=== PATIENT | male | born 1965 | race Caucasian/White ===

== ENCOUNTER → 2022-09-11 | Outpatient (CLI) | payer BC ==
--- NOTE | 2022-09-12 16:10 | MR ---
EXAMINATION TYPE: MR cspine/lspine wo con DATE OF EXAM: 09/11/2022 COMPARISON: None HISTORY: Cervicalgia, vertebrogenic low back pain CONTRAST: Performed utilizing 0 mL intravenous Gadavist gadolinium contrast. TECHNIQUE: Multiplanar multiecho imaging on a 3.0 Noemí magnet is performed through the cervical spin e. FINDINGS: Susceptibility artifact from posterior cervical surgery is evident C2-C6. This limits evalu ation of the spinal cord through these levels. The craniovertebral junction is normal. Vertebral body alignment is normal. No obvious spinal canal stenosis is evident. There are levels are limited are nondiagnostic due to th e susceptibility artifact. Neural foramen where visualized appear patent. IMPRESSIONS: 1. Limited cervical spine due to susceptibility artifact. No obvious stenosis. EXAMINATION TYPE: MR cspine/lspine wo con DATE OF EXAM: 09/11/2022 COMPARISON: None HISTORY: Cervicalgia, vertebrogenic low back pain CONTRAST: 0 mL intravenous Gadavist. TECHNIQUE: Multiplanar, multisequence images of the lumbar spine were acquired. FINDINGS: Cord terminates at the L1-2 level. L5-S1: There is narrowing of the disc height. Residual disc bulge is present which may have some mini mal anterior thecal sac contact. No AP spinal canal stenosis is present. Bilateral foraminal stenosis is present. Correlate with S1 radicular symptoms. L4-L5: Facet hypertrophy and ligamentum flavum laxity is present with posterior lateral thecal sac co mpression. Neural foramen and mild narrowing. No AP spinal canal stenosis is present. L3-L4: No significant disc bulge or disc herniation. No spinal canal stenosis. No foraminal stenosi s. Some facet hypertrophy is present. L2-L3: No significant disc bulge or disc herniation. Neural foramen are patent. Facet hypertrophy is present with minimal posterior lateral thecal sac compression. No AP spinal canal stenosis is present L1-L2: Broad-based disc bulge has mild anterior thecal sac contact. No AP spinal canal stenosis is. S ome mild facet hypertrophy is present. No posterior lateral thecal sac compression is evident. Neural foramen are patent. T12-L1: No significant disc bulge or disc herniation. No spinal canal stenosis. No foraminal stenos is. IMPRESSION: 1. Degenerative disc changes disc desiccation and loss of disc height L5-S1. Residual disc bulge is m inimal anterior thecal sac contact. 2. Facet hypertrophy with posterior lateral thecal sac compression L5 S1-1 minimal degree L2-3. 3. Moderate to severe bilateral foraminal stenosis L5-S1. Correlate with S1 radicular symptoms.
== END | disposition home or self-care (01) ==
LOC: RADMRIMAIN 07:39
PROVIDERS: ATTEND Family Medicine
DX: M48.061 Spinal stenosis, lumbar region without neurogenic claudication (principal); M51.17 Intervertebral disc disorders with radiculopathy, lumbosacral region; M47.27 Other spondylosis with radiculopathy, lumbosacral region; M54.2 Cervicalgia
CPT/HCPCS: 72141; 72148

== ENCOUNTER → 2023-03-10 | Outpatient (CLI) | payer BC ==
--- NOTE | 2023-03-10 14:00 | XR ---
EXAMINATION TYPE: XR lumbar spine 2 or 3V DATE OF EXAM: 03/10/2023 Comparison: None Clinical History: 57-year-old male [id number] PAIN IN LEG, UNSPECIFIED Findings: Postsurgical change of L4-S1 posterior and interbody fusion with corresponding laminectomies. Lateral osseous fusion bone graft material is noted. Vertebral body heights are preserved. Trace grade 1 ret rolisthesis above the fusion at L3-L4. Facet arthropathy above the fusion. Moderate degenerative disc disease L1-L2. Vertebral body heights are preserved. Impression: 1. Status post L4-S1 posterior and interbody fusion with corresponding laminectomies. An completely c onsolidated lateral osseous fusion bone graft material. 2. Moderate degenerative disc disease L1-L2 and degenerative trace grade 1 retrolisthesis above the f usion at L3-L4.
== END | disposition home or self-care (01) ==
LOC: RADXRMAIN 10:21
PROVIDERS: ATTEND Neurological Surgery
DX: M51.36 Other intervertebral disc degeneration, lumbar region (principal); M43.16 Spondylolisthesis, lumbar region; Z98.890 Other specified postprocedural states
CPT/HCPCS: 72100

== ENCOUNTER → 2024-09-06 | Outpatient (CLI) | payer BC ==
--- NOTE | 2024-09-07 09:28 | MR ---
EXAMINATION TYPE: MR thoracic spine wo con DATE OF EXAM: 09/06/2024 12:41 PM COMPARISON: NONE HISTORY: Mid back pain, hx cervical and lumbar surgery. MRI thoracic is for upcoming surgery. Multiplanar MultiSpin echo imaging of the thoracic spine was performed. Disc spaces: Moderate to severe degenerative disc space narrowing and disc desiccation greatest at T7 -T12. There is multilevel disc bulging noted particularly at T2-2, T3-4 and to a greater extent at T7 -T8, T8-T9, T9-T10, T10-T11 and T11-T12. Spinal canal: There is evidence for mild to moderate central stenosis extending from T7 through T12 g reatest in considered severe at T11-T12. No intrinsic or extrinsic lesion. Thoracic spinal cord: Thoracic spinal cord is of normal caliber. Compressive myelopathy suggested at T11-T12. Paraspinal soft tissues: No evidence for paraspinal mass. No destructive lesions seen. Vertebral segments: No evidence for fracture or bony lesion. IMPRESSION: 1. Multilevel degenerative disc disease with multilevel disc bulging. Mild central stenosis extending from T7 through T11 with severe stenosis at T11-T12 where there may be compressive myelopathy. [facility], , 09/07/2024 9:06 AM
== END | disposition home or self-care (01) ==
LOC: RADMRIMAIN 11:22
PROVIDERS: ATTEND Orthopaedic Surgery
CPT/HCPCS: 72146

== ENCOUNTER → 2024-09-07 | Outpatient (CLI) | payer BC ==
--- NOTE | 2024-09-07 09:27 | XR ---
EXAMINATION TYPE: XR chest 2V DATE OF EXAM: 09/07/2024 COMPARISON: NONE HISTORY: Shortness of breath TECHNIQUE: Frontal and lateral views of the chest are obtained. FINDINGS: Scattered senescent parenchymal changes noted. Hyperinflation compatible with COPD. No evidence for infiltrate. No evidence for atelectasis. Heart size is stable. Mediastinal structures are stable and grossly unremarkable. No evidence for hilar prominence. Degenerative changes dorsal spine. IMPRESSION: 1. No evidence for acute pulmonary disease. [facility], , 09/07/2024 8:12 AM
[2024-09-07 15:09] LABS: HCT 39.8 % (39.6-50.0); HGB 13.7 g/dL (13.0-17.0); MCHC 34.4 g/dL (32.0-37.0); Mean Platelet Volume 9.4 FL (9.5-12.2); NRBC Per 100 WBC 0 X 10*3/uL (0.00-0.01); Platelet Count 498 X 10*3/uL (140-440); RBC 4.28 X 10*6/uL (4.40-5.60); RDW 12.3 % (11.5-14.5); WBC 13.47 X 10*3/uL (4.50-10.00)
[2024-09-07 15:21] LABS: ALT 23 U/L (10-49); AST 16 U/L (14-35); Albumin 4.3 g/dL (3.8-4.9); Albumin/Globulin Ratio 1.54 Ratio (1.60-3.17); Alkaline Phosphatase 89 U/L (41-126); BUN/Creat Ratio 19.78 Ratio (12.00-20.00); Blood Urea Nitrogen 17.8 mg/dL (9.0-27.0); Calcium 9.7 mg/dL (8.7-10.3); Carbon Dioxide 21.6 mmol/L (21.6-31.8); Chloride 96 mmol/L (96-109); Globulin 2.8 g/dL (1.6-3.3); Glucose 124 mg/dL (70-110); Sodium 133 mmol/L (135-145); Total Bilirubin 0.3 mg/dL (0.3-1.2); Total Protein 7.1 g/dL (6.2-8.2)
[2024-09-07 17:09] LABS: INR <0.93 sec (0.93-1.11)
== END | disposition home or self-care (01) ==
LOC: LABPAT 07:25
PROVIDERS: ATTEND Orthopaedic Surgery
CPT/HCPCS: 71046; 80053; 85027; 85610; 86850; 86900; 86901; 87070; 93005

== ENCOUNTER 2024-09-10 10:26 | Observation (INO) | payer BC ==
[~2024-09-10 10:26] MED LIST: TRANEXAMIC 1,000 MG/100ML-NACL 1,000 MG in SALINE 1 100ML.BAG IVPB PRN
[2024-09-10] MEDS: IV FLUID CONTINUATION 1,000 ML IV ONE ×3 (10:50→11:18)
[2024-09-10 11:16] LABS: Basophils % (A) 0 %; Eosinophils # (A) 0.1 k/uL (0-0.7); Eosinophils % (A) 1 %; HCT 38.3 % (39.0-53.0); Lymphocytes # (A) 2.7 k/uL (1.0-4.8); Lymphocytes % (A) 20 %; MCH 31.7 pg (25.0-35.0); MCHC 33.8 g/dL (31.0-37.0); MCV 93.8 fL (80.0-100.0); Mean Platelet Volume 7.5; Monocytes % (A) 7 %; Neutrophils # (A) 9.7 k/uL (1.3-7.7); Neutrophils % (A) 71 %; Platelet Count 451 k/uL (150-450); RBC 4.08 m/uL (4.30-5.90); RDW 12.7 % (11.5-15.5); WBC 13.6 k/uL (3.8-10.6)
[2024-09-10 11:31] LABS: ALT 24 U/L (4-49); AST 21 U/L (17-59); African American GFR (CKD) >90 (>60 ml/min/1.73 sqM); Albumin 4.1 g/dL (3.5-5.0); Alkaline Phosphatase 80 U/L (38-126); Anion Gap 8 mmol/L; Blood Urea Nitrogen 18 mg/dL (9-20); Calcium 9.2 mg/dL (8.4-10.2); Carbon Dioxide 26 mmol/L (22-30); Chloride 102 mmol/L (98-107); Glucose 89 mg/dL (74-99); Non-African American GFR(CKD) >90 (>60 ml/min/1.73 sqM); Potassium 3.9 mmol/L (3.5-5.1); Sodium 136 mmol/L (137-145); Total Bilirubin 0.6 mg/dL (0.2-1.3); Total Protein 6.9 g/dL (6.3-8.2)
[2024-09-10] MEDS: ACETAMINOPHEN TAB 500 MG TAB PO PRN (11:32)
[2024-09-10] MEDS: ONDANSETRON 4 MG/2 ML VIAL IVP PRN (11:32)
[2024-09-10] MEDS: GABAPENTIN 300 MG CAP PO PRN (11:32)
[2024-09-10] MEDS: LACTATED RINGERS 1,000 ML BAG IV STA (11:33)
[2024-09-10] MEDS: DEXAMETHASONE SOD PHOSPHATE 4 MG/ML 1 ML VIAL IVP STA (11:33)
--- NOTE | 2024-09-10 12:33 | P.HPOR ---
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 Fatima presents to the office today, 09/05/24, for evaluation on referral from his PCP Dr. Olsen. Pt over the past 8 weeks has had progressive weaknes in his RLE to the point now where he is using a walker to get around and cannot lift up his RLE any longer. He states gait instability and is falling due to his RLE giving out. He also states that he is starting to get numbness in his ubilical area as well as down the fronts of his legs into his feet. He states this has just started over the past 3-4 weeks but is progressively getting worse. He followed up with his PCP after and MRI he received and was sent immediately to me for cosultation due to severe findings at T11-12 with severe stenosis and his progressive neurological sx. He states mid back pain as well. He has a hx of L4-S1 fusion in the past. He denies any issues related to this. He states no sx like this ever before and he is worried as he is having trouble with his urination. H8 Patient denies any f/c/sob/cp, perineal numbness or tingling, bowel, or bladder incontinence/retention. Patient is ambulatory with a walker which is new for him. P1 The patients past social, medical, family, surgical history, as well as review of systems, have been reviewed. Please refer to the History and Physical form that has been scanned into our electronic medical record system. R0 16 points review of systems completed and as stated in HPI, all other systems reviewed are negative. PAST TREATMENTS: PAST IMAGING: YES -XR, MRI TRAUMA RELATED: NO - WORK RELATED: NO - PT IN LAST 6 MONTHS: YES -Made worse PHYSICIAN DIRECTED HOME EXERCISE PROGRAM: YES -YES, made worse ACTIVITY MODIFICAITON: YES -Cannot work, Has been off work due to his gait instability, weakness and inability to ambulate normally due to weakness in legs with progressive changes. MEDICATIONS: YES -Prednisone, medrol, flexeril ALTERNATIVE INTERVENTIONS (CHIROPRACTIC, ACCUPUNCTURE, MASSAGE, RICE): YES -Massage, no help BRACING: NO - INJECTIONS (MIMI, TF, RFA): NO - MEDICAL HISTORY: Past Medical History: REVIEWED STATED IN CHART Past Surgical History: REVIEWED STATED IN CHART Social History: REVIEWED STATED IN CHART SMOKING: Never smoker ETOH: None SUBSTANCES: None Family History: REVIEWED STATED IN CHART P1 Current Medications: Rx: CeleBREX Ref: 0 Rx: gabapentin Ref: 0 Rx: [place] Ref: 0 Rx: Robaxin Ref: 0 P1 PHYSICAL EXAM: General: AOX3, NAD, Well hydrate, well nourished HEENT: No lumps or masses Extremities: No color changes, no pooling INTEGUMENT: Appearance: Normal color and turgor Surgical Incisions: Well healed Low back incision Hairy Patches: ABSENT Dorsal Skin Dimples: Normal [employer] spots: ABSENT PALPATION: TTP Midline: NO Paracervical: NO Parathoracic: YES Paralumbar: Mild SIJ TESTING: NT POSTURAL BALANCE: Coronal: BALANCED Sagittal: BALANCED Shoulder height: LEVEL Pelvic Girdle: LEVEL ROM AND APPEARANCE: Neck: UNRESTRICTED Lumbar: RESTRICTED Shoulders: Symmetrical Hips: Symmetrical Knees: Symmetrical Hands: Symmetrical Feet: Asymmetrical, Right foot and leg showing atrophy VASCULAR STATUS: PALPABLE PULSES B/L UE AND LE 2/4 RAD/ULNAR/DP/PT Edema: NONE NEUROLOGICAL EXAMINATION: Mental Status: Awake, alert, fully oriented with normal attention, concentration, and memory. Fluent appropriate speech. CRANIAL NERVES: I: Olfactory not assessed. II: Visual acuity normal, no visual field deficit noted with confrontation. III, IV: Normal pupillary reflexes & intact extraocular movements without nystagmus. V, : Intact symmetrical facial sensation. VII: Intact symmetrical facial motor movement: Hearing intact. IX, X: Intact gag, swallow, & normal voice. XI: Sternocleidomastoid, trapezius function intact. XII: Tongue midline with normal movements. TENSIONING: * L'HERMITTE'S SIG:NEG SPURLUNG'S SIGN:NEG CUBITAL TUNNEL COMPRESSION:NEG TINELS AT WRIST:NEG STRAIGH LEG RAISE:POS CONTRALATERAL STRAIGHT LEG RAISE: NEG MOTOR EXAM (0-5/5, NT) Muscle appearance: Asymmetrical, RLE showing atrophy of the calf and thigh muscles as well as intoeing of the right foot due to weakness. UPPER EXTREMITY RIGHT LEFT Shoulder Abduction 5 5 Biceps 5 5 Triceps 5 5 Wrist Extension 5 5 Hand Intrinsics 5 5 Psychology Technician 5 5 LOWER EXTREMITY RIGHT LEFT Hip Flexion 3 4 Knee Extension 4- 4 Knee Flexion 4- 5 Dorsiflexion 4 5 Plantarflexion 4- 4+ EHL 3 4+ FHL 3 4+ REFLEXES (0-4/2, NT): RIGHT LEFT Bicep 2 2 Brachioradialis 2 2 Triceps 2 2 Patellar 3 3 Achilles 3 3 PATHOLOGICAL REFLEXES: RIGHT LEFT CONNORS'S ABSENT ABSENT CLONUS PRESENT 7 BEATS PRESENT 5 BEATS BABINSKI ABSENT ABSENT RECTAL TONE: INTACT/NT SENSATION (0-4, NT): Sensation intact to LT and Pain * C5-T1 distribution BUE * L2-S2 distribution BLE *Exceptions below* DERMATOMAL DEFICIT/RADICULAR PATTERN: T11-12 UBILICAL; L1-2 BL LE, S1 RIGHT GAIT AND FUNCTIONAL EVALUATION: AMBULATORY AID WALKER ROMBERG'S TEST INTACT HAND AND FINGER DEXTERITY INTACT YES DYSDIADOCHOKINESIA EXAM NEG B/L YES TOE/HEEL WALK INTACT WITH GOOD BALANCE NO SQUAT AND RISE W/O ASSISTANCE TO 60 DEG KNEE FLEXION NO SINGLE LEG STANCE NOT INTACT TR[place] NT IMAGING: XRAY Date: 09/05/24 Location: [facility] Region: THoracic and lumbar/pelvis Views: AP/LAT/FLEX/EXT/OB/PELVIS IMAGES ARE REVIEWED WITH THE PATIENT IN OFFICE AND DEMONSTRATE THE FOLLOWING: FINDINGS: Post surgical changes of L4-S1 with fusion construct in place. Mild ASD noted L3-4. Severe spondylotic changes of L1-2 noted with disc collapse, space collapse noted at T11-12 as well with local kyphosis. No fractures noted. Alignment is stable with reasonable lordosis post op. There is increased thoracic kyphosis at the T/L junction howevere due to the collapse. CT Pending MRI Date: 08/30/24 Location: [facility] Region: LUMBAR Contrast: N IMAGES ARE REVIEWED WITH THE PATIENT IN OFFICE AND DEMONSTRATE THE FOLLOWING: FINDINGS: T11-12 shows a large HNP with anterior and posterior stenosis at this level that is severe with myelomalacial changes and cord signal changes at this level that are spreading down past the T12 level. Ligamental hypertrophy causes posterior stenosis and a pincer type lesion at this level adding to the stenotic features. b/l foraminal stenosis is severe as well. No fractures noted. There is disc collapse that is severe at this level due to the herniation and spondylotic changes. Facet arthrosis is noted that is moderate to severe as well. At L1-2 there is also a large HNP that is causing moderate to severe stenosis at this level. THere is b/l foraminal stenosis as well. There is severe spondylotic collapse of this level as well adding to the stenotic features centrally. No fractures. The remainder of the lumbar spine appears to be stable with post surgical changes, reasonable decompression at the lower lumbar levels L4-S1 without complicating process seen. IMPRESSION: It was my pleasure to have seen and examined Alex. I reviewed the patient's clinical syndrome, physical findings, and imaging studies during the appointment today. It is my impression that the patient has a diagnosis of. 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 GAIT INSTABILITY 5. HYPERREFLEXIA 6. MID BACK PAIN PLAN: DISCUSSION: -I HAVE DISCUSSED WITH THE PATIENT HIS CLINICAL SIGNS AND SX WELL TREATMENT OPTIONS. AT THIS POINT THE PATIENT NEEDS URGENT SURGERY TO ADDRESS HIS ISSUES HE HAS BECOME PROGRESSIVELY WORSE OVER THE PAST 8 WEEKS AND IS NOW SHOWING SIGNS OF PERMANENT DAMAGE. IF NOT TAKEN CARE OF SOON HIS MAXIMUM RECOVERY POTENTIAL IS AT RISK AND HE MAY NOT REGAIN ALL OF HIS LE FUNCTION. HE UNDERSTANDS THIS AND IS COMFORTABLE PROCEDING OUTLINED BELOW. RISKS AND BENEFITS DISCUSSED IN RISK REVIEW. SURGICAL RECOMMENDATION -T11-1 LAMINECTOMY DECOMPRESSION WITH DISCECOMTY AND STABILIZATION; L1-2 LAMINECTOMY DECOMPRESSION Surgical Procedure Risk Review Alex Fatima is a 58 year old male presenting for evaluation of sudden onset of LE WEAKNESS, DIFFICULTY WITH GAIT, FALLING, PROGRESSIVE NEUROLOGICAL CHANGES. It was my pleasure to have seen and examined Mr. Fatima. In our visit today we have had a chance to go over subjective complaints, physical examination findings and treatments, including the natural course history without intervention and various interventional options. The imaging demonstrates T11-12 HNP LARGE WITH SEVERE STENOSIS AND MYELOMALACIA; L1-2 HNP LARGE WITH STENOSIS, SEVERE . On physical exam, Mr. Fatima demonstrates THORACIC MYELOPATHY, STEPPAGE GAIT, LE WEAKNESS, PROGRESSIVE NEUROLOGICAL CHANGES . I explained to the patient that as his condition progresses it could cause DETRIMENTAL CHANGES TO HIS LE IMPACTING HIS MAXIMUM RECOVERY POTENTIAL WITH PERMANENT WEAKNESS, DAMAGE AND POSSIBLE PROGRESSIVE CHANGES . At this time, based on the patients imaging and physical exam, I recommend surgery in the form or a: T11-1 LAMINECTOMY DECOMPRESSION WITH DISCECOMTY AND STABILIZATION; L1-2 LAMINECTOMY DECOMPRESSION . I discussed the risk and benefits of this procedure at length with Mr. Fatima. The patient agreed to consider pursuing the procedure mentioned above. Plan: 1. URGENT T11-1 LAMINECTOMY DECOMPRESSION WITH DISCECOMTY AND STABILIZATION; L1-2 LAMINECTOMY DECOMPRESSION 2. LABS ON ARRIVAL TO OR 3. CXR, EKG ON ARRIVAL 4. THORACIC MRI STAT 5. THORACOLUMBAR CT FOR SURGICAL PLANNING Risks: All surgical procedures come with inherent risks, including those related to positioning, anesthesia, intraoperative findings, and postoperative complications. It is important to understand that surgery does not come with any guarantee of a successful outcome as complications and adverse events are always possible. The patient was given a handout in office today discussing the surgical procedure and risks associated with the intervention, both of which were discussed with the patient. These risks include but are not limited to the following: ? Experiencing same, different or even worse symptoms in back, neck, arms, or legs compared to before surgery. ? Requiring further surgery or other forms of treatment presently or at some time in the future at same or other levels of the intended spine surgery. ? On an extreme but fortunately relatively rare basis severe complication such as blindness, stroke, heart attack, temporary and/or permanent nerve injury, paralysis, coma, or may occur, sometimes without known explanation. ? Surgical complications may include but are not limited to risk of infection, fluid accumulation in the surgical dissection site, including a seroma or hematoma, that requires additional surgery, wound drainage, bleeding, new numbness or weakness, vision changes/loss, spinal fluid leakage, non-healing and/or infected incision, headaches, difficulty or inability to swallow, hoarseness, hemopneumothorax, pneumothorax, impotence, retrograde ejaculation, vaginal dryness; injury to nerves, spinal cord, blood vessels, lymphatics or other vital organs (i.e., bowel injury, injury to the great vessels); heterotopic bone formation; complications related to the hardware such as screws, rods, cages including misplaced hardware, device failure, instrumentation at the wrong spine level, hardware fracture/breakage, or hardware loosening; vertebral failure of the spinal column above or below the newly placed hardware; retained surgical instrumentations or devices and the need for further surgery. ? Medical risks of the planned spine surgery include but are not limited to generalized Infections to the whole body or local areas outside of the surgical site (sepsis), heart attack, bleeding, anaphylaxis, meningitis, seizure, epile psy, hearing loss, burn pope, laceration of the head or other areas of the body, bruising, hypersensitivity of the skin, bladder over distension; allergic reaction; shoulder injury related to positioning; fat, blood and air clots to other areas of the body like heart, lungs, brain; failure of internal organs such as lungs, kidneys, liver and excessive bleeding. If blood transfusions are necessary, note that transfusions may cause intolerance reactions such as anaphylaxis or other complex reactions. Despite best efforts, the results of spine surgery might not heal in terms of bone, soft tissues such as skin, fascia, ligaments, and joints. Additionally, in order to achieve best possible results, spine surgery may be carried out beyond the initially planned levels and involve decompression, fusion including insertion of hardware at levels other than the original intended area of surgica l interest change some portions of the procedure in order to ensure the best possible outcomes. With spine surgery and spinal fusion, there are different off label uses of instrumentation (devices, implants and hardware) as well as biological substances (bone morphogenic proteins, demineralized bone matrix) as well as using extra bone from allograft sources (i.e. cadaver bone) or autograft (iliac crest bone, ribs, or the spine itself). The patient has been given information about these practices and their inherent risks and benefits. [facility] Physician Assistants are medically trained surgical providers who function in the outpatient, inpatient, and operating room setting under the direct supervision of the attending surgeon.They assist in the operating room with direct supervision of the attending surgeons. The patient has had a chance to review all the listed information, has been given print outs detailing this information, and has had all his/her questions a nswered to their satisfaction. It was my pleasure to have seen and examined Mr. Fatima. In our visit today we have had a chance to go over my understanding of our patient's current condition, the natural course history without intervention and various interventional options. Questions were invited and answered, and the patient wishes to proceed as outlined above. I have seen and examined the patient for 25 minutes and we have spent more than 50% of the time in repeat and detailed counseling about the patient's condition, its natural course history with out and as much as can be predicted with surgery and re-review of various surgical treatment options. In conclusion,Mr. Fatima and his spouse/partner requested we proceed with the above suggested surgery and are willing to accept risks and limitations of the suggested surgery as nature of the disease process and our best attempts at tr eatment for the condition. THERAPIES - -Cont. with home exercises and home PT exercises as able -Cont. with Heat/Ice as warranted -Cont. with supplementation Vit D, Vit C, Ca2+, High protein diet -OK for massage or other alternative treatment modalities as able. If it exacer alvarez your sx do not continue ACTIVITY -OFF WORK -NO LIFTING BENDING TWISTING PUSHING PULLING GREATER THAN -10 LBS -Recommend walking up to 30 min 2x daily on a flat easy surface with good support. MEDICATIONS -PREDNISONE 20 MG BID #30 -Take as directed -Cont. home medications as directed by your PCP. Check with your PCP for any medication interactions or issues if needed. IMAGING -MRI STAT THORACIC SPINE FOR FURTHER REVIEW OF THE T11-12 REGION. -CT STAT OF THE T/L SPINE FOR SURGICAL PLANNING FOLLOW UP: POST OP PLAN AT NEXT VISIT: RECKECK AND WOUND CHECK PATIENT EDUCATION: Medications Reviewed: YES In our visit today Mr. Fatima and I have had a chance to go over my understanding of the patient's current condition, the natural course history without intervention and various interventional options. Questions were invited and answered, and the patient wishes to proceed as outlined above. I will be sure to keep you updated after Mr. Fatima returns here for further follow-up. Thank you again for your referral. Please do not hesitate to contact me if you have any further questions. Signed and authenticated by: Brandon [facility] [address] [facility], [address] [address] . This message is confidential, intended only for the named recipient(s) and may contain information that is privileged or exempt from disclosure under applicable law. If you are not the intended recipient(s), you are notified that the dissemination, distribution or copying of this information is prohibited. If you received this message in error, please notify the sender then delete this message. Rx: predniSONE 20 mg tablet, 30, Ref: 0, take 1 tablet (20 mg) by oral route 2 times per day #Orders: Pelvis xray #Orders: Spine, Lumbar, MV #Orders: Thoracic, 2v xray #Orders: MRI Spine # SIGNED BY Brandon Alcantara (Sujit)09/05/2024 11:26A Past Medical History Past Medical History: Hypertension History of Any Multi-Drug Resistant Organisms: None Reported Past Surgical History: Back Surgery, Orthopedic Surgery Additional Past Surgical History / Comment(s): LEFT SHOULDER SCOPE, CERVICAL AND LUMBAR BACK SURGERY. Past Anesthesia/Blood Transfusion Reactions: No Reported Reaction Additional Past Anesthesia/Blood Transfusion Reaction / Comment(s): NEVER HAD A BLOOD TRANSFUSION Past Psychological History: No Psychological Hx Reported Smoking Status: Vaper Past Alcohol Use History: Occasional Additional Past Alcohol Use History / Comment(s): FEW TIMES A WEEK. Past Drug Use History: None Reported Medications and Allergies Home Medications Medication Instructions Recorded Confirmed Type Celecoxib 200 mg PO DAILY 09/10/24 09/10/24 History Gabapentin 300 mg PO TID 09/10/24 09/10/24 History HYDROcodone/APAP 7.5-325MG [[place] 1 tab PO QID PRN 09/10/24 09/10/24 History 7.5-325] Pantoprazole [Protonix] 40 mg PO DAILY 09/10/24 09/10/24 History lisinopriL [Zestril] 10 mg PO DAILY 09/10/24 09/10/24 History methocarbamoL 500 mg PO TID PRN 09/10/24 09/10/24 History Allergies Allergy/AdvReac Type Severity Reaction Status Date / Time No Known Allergies Allergy Verified 09/10/24 10:43 Physical Examination Osteopathic Statement: *. No significant issues noted on an osteopathic structural exam other than those noted in the History and Physical/Consult. Results - Labs Labs: Abnormal Lab Results - Last 24 Hours (Table) 09/10/24 09/10/24 Range/Units 11:04 11:04 WBC 13.6 H (3.8-10.6) k/uL RBC 4.08 L (4.30-5.90) m/uL Hct 38.3 L (39.0-53.0) % Plt Count 451 H (150-450) k/uL Neutrophils # 9.7 H (1.3-7.7) k/uL Sodium 136 L (137-145) mmol/L H & H 09/10/24 Range/Units 11:04 Hgb 13.0 (13.0-17.5) gm/dL Hct 38.3 L (39.0-53.0) % Result Diagrams: 09/10/24 11:04 09/10/24 11:04
--- NOTE | 2024-09-10 12:34 | P.PN ---
Progress Note - Text Progress Note Date: 09/10/24 History and Physical UPDATE I have seen and examined the patient and reviewed the history and physical. There appear to be no significant changes in the patient's current medical status as outlined in the current History and Physical.
[2024-09-10] MEDS ORDERED: PHENYLEPHRINE 10 MG/ML VIAL ONE (14:11)
[2024-09-10] MEDS ORDERED: WATER FOR INJECTION, STERILE 10 ML VIAL IV ONE (14:11)
[2024-09-10] MEDS ORDERED: ePHEDrine 50 MG/ML 1 ML VIAL ONE (14:11)
[2024-09-10] MEDS ORDERED: LIDOCAINE 1% INJ 10MG/ML (20 ML MDV) ONE (14:11)
[2024-09-10] MEDS ORDERED: GLYCOPYRROLATE 0.2 MG/ML 2 ML VIAL ONE (14:11)
[2024-09-10] MEDS ORDERED: LABETALOL 5 MG/ML VIAL MDV ONE (14:11)
[2024-09-10] MEDS ORDERED: PROPOFOL 10 MG/ML 20 ML VIAL IV ONE (14:11)
[2024-09-10] MEDS ORDERED: NEOSTIGMINE 1 MG/ML 10 ML VIAL ONE (14:11)
[2024-09-10] MEDS ORDERED: SUCCINYLCHOLINE CHLORIDE 200 MG/10 ML VIAL IV ONE (14:11)
[2024-09-10] MEDS ORDERED: MIDAZOLAM 2 MG/2 ML VIAL ONE (14:11)
[2024-09-10] MEDS ORDERED: ROCURONIUM 10 MG/ML (5 ML VIAL) IV ONE (14:11)
[2024-09-10] MEDS ORDERED: fentaNYL (PF) 50 MCG/ML 2 ML AMP ONE (14:11)
[2024-09-10] MEDS ORDERED: TRANEXAMIC 1,000 MG/100ML-NACL PREMIX BAG ONE (14:11)
[2024-09-10] MEDS ORDERED: KETAMINE HCL IN 0.9 % NACL 50 MG/5 ML SYRINGE ONE (14:11)
[2024-09-10] MEDS: THROMBIN (BOVINE) 5,000 UNIT VIAL TOPICAL ONE (14:48)
[2024-09-10] MEDS: ceFAZolin 3,000 MG in SODIUM CHLORIDE 0.9% IRRIGATIO 3,000 ML IRRIGATION ONE (14:48)
[2024-09-10] MEDS: LACTATED RINGERS 1,000 ML IV ONE ×2 (14:48→17:26)
[2024-09-10] MEDS: GENTAMICIN 80 MG in SODIUM CHLORIDE 0.9% IRRIGATIO 3,000 ML IRRIGATION ONE (14:48)
[2024-09-10] MEDS ORDERED: HYDROcodone/APAP 5-325MG 1 EACH TAB PO PRN (16:33)
[2024-09-10] MEDS ORDERED: HYDROcodone/APAP 10-325MG 1 EACH TAB PO PRN (16:33)
[2024-09-10] MEDS ORDERED: MAGNESIUM HYDROXIDE 2,400 MG/30 ML CUP PO PRN (16:33)
[2024-09-10] MEDS: VANCOMYCIN 1,000 MG VIAL MISCELLANE ONE (17:10)
--- NOTE | 2024-09-10 17:44 | P.PN ---
Progress Note - Text Progress Note Date: 09/10/24 Brief Post Op: Surgeon: Maricruz Pre op dx;THORACIC MYELOPATHY t11 12 DISC HERNIATION SEVERE COMPRESSIVE MYELOPATHY Post op dx: SAME Procedure: T11-T12 decompression fusion posterior lateral and interbody with T11 through L2 decompression Anesthesia: GETA EBL: 250 Fluids: 2000 UO: Mc 200 Dispo: Stable to PACU Post op Plan: Post operative noncontrasted CT scan Encourage ambulation IS 10x/hr Teds/SCDs Pain control No brace needed for ambulation Record Drain output
--- NOTE | 2024-09-10 17:46 | XR ---
EXAMINATION TYPE: XR thoracic spine 2V, FL guidance operating room DATE OF EXAM: 09/10/2024 COMPARISON: NONE HISTORY: 58-year-old male T11-T12 laminectomy TECHNIQUE: Intraoperative fluoroscopy FINDINGS: T11-T12 Laminectomy with Dr. Alcantara fl time 35 sec DAP 674.43 cGy cm2 6 images submitted. [facility], , 09/10/2024 5:43 PM
[2024-09-10] MEDS: HYDROmorphone 0.5 MG/0.5 ML SYRINGE IVP PRN ×2 (18:00→18:17)
--- NOTE | 2024-09-10 20:19 | P.OP ---
Date of Procedure: 09/10/24 Preoperative Diagnosis: 1.SEVERE PROGRESSIVE THORACIC MYELOPATHY 2.T11-12 HNP, LARGE WITH SEVERE STENOSIS 3.L1-2 HNP, LARGE WITH LE WEAKNESS 4. GAIT INSTABILITY 5. HYPERREFLEXIA 6. MID BACK PAIN Postoperative Diagnosis: 1.SEVERE PROGRESSIVE THORACIC MYELOPATHY 2.T11-12 HNP, LARGE WITH SEVERE STENOSIS 3.L1-2 HNP, LARGE WITH LE WEAKNESS 4. GAIT INSTABILITY 5. HYPERREFLEXIA 6. MID BACK PAIN Procedure(s) Performed: T11-12 POSTEROLATERAL AND INTERBODY FUSION WITH DECOMPRESSIVE LAMINECTOMY FACETECTOMY AND FORAMINOTOMY T11-L2 WITH INSTRUMENTATION T11-12 AND INTERBODY PLACEMENT T11-12 USING KDS NAVIGATION. - 20005: Posterior/posterolateral AND interbody fusion, lumbar/thoracolumbar (includes laminectomy/discectomy for decompression), single level (T11-12) - 19481: Insertion of interbody biomechanical device with integral anterior instrumentation for device anchoring (T11-12) - 37920: Posterior segmental instrumentation (T11-12) - 65004: Bilateral laminectomy, facetectomy and foraminotomy for neural decompression and cage placement. (T11-12) - 38785/59: Primary decompressive laminectomy (L1-2) - 09335/59: Each additional segment (T12-L1) - 51208: Computer assisted navigation for the placement of screws (PxRadia Navigation, Zhiem) Implants: GALEN EVEREST RODS AND SCREWS GALEN TRITANIM CAGE [id number] DBM, AUTOGRAFT, MAGNATOS EASY PACK Anesthesia: GETA Surgeon: Brandon Alcantara Neuro Intensivist Physician #1: Jessica Mccoy (was present and assisted with screw placement to dressing placement) Neuro Intensivist Physician #2: Bobby Oglesby (was present and assisted from positioning to screw placement) Estimated Blood Loss (ml): 250 IV fluids (ml): 2,000 Urine output (ml): 1,750 Pathology: none sent Condition: stable Disposition: PACU Indications for Procedure: Alex Fatima is a 58 year old male presenting for evaluation of sudden onset of LE WEAKNESS, DIFFICULTY WITH GAIT, FALLING, PROGRESSIVE NEUROLOGICAL CHANGES. It was my pleasure to have seen and examined Mr. Fatima. In our visit today we have had a chance to go over subjective complaints, physical examination findings and treatments, including the natural course history without intervention and various interventional options. The imaging demonstrates T11-12 HNP LARGE WITH SEVERE STENOSIS AND MYELOMALACIA; L1-2 HNP LARGE WITH STENOSIS, SEVERE . On physical exam, Mr. Fatima demonstrates THORACIC MYELOPATHY, STEPPAGE GAIT, LE WEAKNESS, PROGRESSIVE NEUROLOGICAL CHANGES . I explained to the patient that as his condition progresses it could cause DET RIMENTAL CHANGES TO HIS LE IMPACTING HIS MAXIMUM RECOVERY POTENTIAL WITH PERMANENT WEAKNESS, DAMAGE AND POSSIBLE PROGRESSIVE CHANGES . At this time, based on the patients imaging and physical exam, I recommend surgery in the form or a: T11-1 LAMINECTOMY DECOMPRESSION WITH DISCECOMTY AND STABILIZATION; L1-2 LAMINECTOMY DECOMPRESSION . I discussed the risk and benefits of this procedure at length with Mr. Fatima. The patient agreed to consider pursuing the procedure mentioned above. Plan: 1. URGENT T11-1 LAMINECTOMY DECOMPRESSION WITH DISCECOMTY AND STABILIZATION; L1-2 LAMINECTOMY DECOMPRESSION Description of Procedure: The patient was seen and examined in the preoperative area. All preoperative protocols were followed. Informed consent was obtained, with detailed discussion of risks and benefits. Preoperative antibiotics (Ancef 2g IV) were administered. The patient was evaluated by anesthesia and deemed fit for surgery. The surgical site was marked and verified. After induction of general endotracheal anesthesia, the patient was carefully positioned prone on a Cheo table. All pressure points were meticulously padded including wrists, elbows, axilla, chest, hips, thighs, and feet. Special attention was paid to the genitalia. SCDs were placed on bilateral lower extremities. Arms were positioned on padded arm boards in 90/90 position. Positioning was verified with anesthesia for adequate ventilation and line placement. Initial fluroscopic images were taken to localize the levels of T11- L2. The skin was marked with a marker for incision. The thoracolumbar region was prepped and draped in standard sterile fashion. A timeout was performed confirming the patient, procedure, and surgical site. A midline incision was made from T10 to L2. Subperiosteal dissection was carried out to expose the posterior elements. We then confirmed levels for operative with a penfield 4 at the pedicle of T12. Using PxRadia navigation with Tackk system, pedicle screws were placed at appropriate levels with all screws testing >20 mA on EMG stimulation. Screws were confirmed to be in good position on AP and Lateral Fluroscopy. We then proceeded to decompression. The decompression was completed with bilateral laminectomy, facetectomy, and foraminotomy from T11 to L2 using a combination of high-speed parris, kerrison rongeurs, and curettes. The bilateral nerve roots were decompressed and verified with ball-tip probe. At T11-L2, extensive epidural scarring was encountered with significant adhesions between the ligamentum flavum and dura. This required meticulous microscopic dissection to safely separate the dura from the surrounding scar tissue. Specimens were sent to pathology due to the unusual appearance and extent of scarring. At T11-12, an interbody device was placed after appropriate discectomy and endplate preparation. Posterolateral fusion was performed using high speed parris to decorticate the TP and remaining facet joints and MagnatOs, DBM and local autograft was placed in the PL gutters for fusion. Meticulous hemostasis was achieved using bipolar cautery, Floseal, and Surgiflo. The surgical field was copiously irrigated with antibiotic solution, Irricept and followed by normal saline. The dura was covered with Surgicel. Vancomycin powder (2g) was placed in the wound bed. A deep drain was placed and secured. Closure was performed in layers using #1 PDS for fascia, 0 Vicryl for deep subcutaneous, and 2-0 Vicryl for superficial subcutaneous layers. Skin was closed with vishnu. Sterile dressing was applied with telfa, 4x4 and tegaderms with a drain sponge. The patient was awakened from anesthesia and extubated without complications. Transfer to PACU was uneventful with patient in stable condition.
[2024-09-10] MEDS: ACETAMINOPHEN TAB 325 MG TAB PO SCH (20:22)
--- NOTE | 2024-09-10 21:33 | P.CONS ---
History of Present Illness - Reason for Consult Consult date: 09/10/24 - History of Present Illness History of present illness; Alex Cruz 58-year-old male with hypertension, GERD, who is presenting for elective T11-12 posteriolateral and interbody fusion with decompressive laminectomy surgery. Patient initially had 8 weeks of progressive weakness in right lower extremity with gait instability and numbness in umbilical area as well as front of his legs to his feet which was progressively worsening. Patient initially seen by Dr. Maya and followed with orthopedic surgery outpatient a nd had planned surgery today. Patient is now postop with no known surgical complications. Patient is laying on side in bed resting, reporting back pain at surgical site. Patient reports absence of fever, chills, weight loss, chest pain, palpitations, diaphoresis, dyspnea, cough, nausea, vomiting, constipation, diarrhea, abdominal pain, weakness, myalgia, dizziness, headache, and dysuria. Internal medicine is consulted for medical management. EKG done in the ER independently interpreted showed heart rate of 66, no ST segment elevation or depression seen, no T-wave inversions seen. X-ray thoracic spine findings of T11-T12 laminectomy. REVIEW OF SYSTEMS: All systems reviewed, pertinent positives and negatives noted in HPI. All other symptoms are negative. PHYSICAL EXAMINATION: Vitals reviewed GENERAL: No acute distress. Well developed, well nourished. Surgical dressing lumbar spine. SCDs. HEENT: Pupils are round and equally reacting to light. EOMI. No scleral icterus. Normocephalic, atraumatic. No pharyngeal erythema. No thyromegaly. CARDIOVASCULAR: S1 and S2 present. No murmurs, rubs, or gallops. PULMONARY: Chest is clear to auscultation, no wheezing, rhonchi, or crackles. ABDOMEN: Soft, nontender, nondistended, normoactive bowel sounds. No palpable organomegaly. MUSCULOSKELETAL: No apparent joint swelling and deformities. EXTREMITIES: No apparent cyanosis, clubbing, or pedal edema. NEUROLOGICAL: The patient is alert and oriented x3, Gross neurological examination did not reveal any focal deficits. Moves upper extremities 5/5 stre ngth, limited LE exam due to pain, moves toes normally. SKIN: No apparent rashes. Assessment and plan Alex Cruz 58-year-old male with hypertension, GERD, who is presenting for elective T11-12 posteriolateral and interbody fusion with decompressive laminectomy surgery. #Essential hypertension - Resume home Lisinopril 10 mg #GERD - Resume home pantoprazole 40mg # T11-12 posterior lateral and anterior body fusion with decompressive laminectomy. -Pain management and DVT prophylaxis per primary surgical team check CBC and BMP in am overall stable from medical standpoint F: P.o. E: Replete as needed N: Heart healthy DVT ppx: per primary surgical team Code status: Full code Dictation was produced using [employer] dictation software. Please excuse any grammatical, word or spelling errors. Past Medical History Past Medical History: Hypertension History of Any Multi-Drug Resistant Organisms: None Reported Past Surgical History: Back Surgery, Orthopedic Surgery Additional Past Surgical History / Comment(s): LEFT SHOULDER SCOPE, CERVICAL AND LUMBAR BACK SURGERY. Past Anesthesia/Blood Transfusion Reactions: No Reported Reaction Additional Past Anesthesia/Blood Transfusion Reaction / Comm: NEVER HAD A BLOOD TRANSFUSION Past Psychological History: No Psychological Hx Reported Smoking Status: Vaper Past Alcohol Use History: Occasional Additional Past Alcohol Use History / Comment(s): FEW TIMES A WEEK. Past Drug Use History: None Reported Medications and Allergies Home Medications Medication Instructions Recorded Confirmed Type Celecoxib 200 mg PO DAILY 09/10/24 09/10/24 History Gabapentin 300 mg PO TID 09/10/24 09/10/24 History HYDROcodone/APAP 7.5-325MG [[place] 1 tab PO QID PRN 09/10/24 09/10/24 History 7.5-325] Pantoprazole [Protonix] 40 mg PO DAILY 09/10/24 09/10/24 History lisinopriL [Zestril] 10 mg PO DAILY 09/10/24 09/10/24 History methocarbamoL 500 mg PO TID PRN 09/10/24 09/10/24 History Allergies Allergy/AdvReac Type Severity Reaction Status Date / Time No Known Allergies Allergy Verified 09/10/24 10:43 Physical Exam Vitals: Vital Signs Temp Pulse Pulse Resp BP Pulse Ox 09/10/24 20:14 97.5 F L 76 20 116/60 90 L 09/10/24 19:43 74 16 110/69 100 09/10/24 19:25 59 L 14 105/55 100 09/10/24 19:10 55 L 16 118/58 100 09/10/24 19:00 58 L 14 132/68 100 09/10/24 18:46 54 L 16 120/65 100 09/10/24 18:31 57 L 16 114/64 100 09/10/24 18:16 54 L 14 126/76 99 09/10/24 18:01 72 16 118/64 100 09/10/24 17:47 96.8 F L 70 20 159/96 97 09/10/24 10:52 96.9 F L 66 16 138/81 97 Intake and Output 09/10/24 09/10/24 09/10/24 06:59 14:59 22:59 Intake Total 2652 400 Output Total 2300 Balance 2652 -1900 Intake: IV 2652 400 Output: Urine 2050 Estimated Blood Loss 250 Other: Weight 81.8 kg Results CBC & Chem 7: 09/10/24 11:04 09/10/24 11:04 Labs: Abnormal Lab Results - Last 24 Hours (Table) 09/10/24 09/10/24 Range/Units 11:04 11:04 WBC 13.6 H (3.8-10.6) k/uL RBC 4.08 L (4.30-5.90) m/uL Hct 38.3 L (39.0-53.0) % Plt Count 451 H (150-450) k/uL Neutrophils # 9.7 H (1.3-7.7) k/uL Sodium 136 L (137-145) mmol/L Assessment and Plan Assessment: I have seen and evaluated the patient today. I Discussed the case with the resident and agree with the resident's findings I edited the assessment and plan as necessary as documented in the resident's note.
[2024-09-10] MEDS: HYDROmorphone 2 MG/ML 1 ML SYRINGE IVP PRN (22:14)
[2024-09-10] MEDS: GABAPENTIN 300 MG CAP PO SCH (22:16)
[2024-09-11] MEDS: HYDROmorphone 1 MG/ML 1 ML SYRINGE IVP PRN (01:00)
[2024-09-11] MEDS: PANTOPRAZOLE 40 MG TABLET PO SCH (06:49)
[2024-09-11 08:39] LABS: Basophils # (A) 0.03 X 10*3/uL (0.00-0.10); Basophils % (A) 0.2 %; Eosinophils # (A) 0.01 X 10*3/uL (0.04-0.35); Eosinophils % (A) 0.1 %; HCT 34.3 % (39.6-50.0); HGB 11.4 g/dL (13.0-17.0); Lymphocytes # (A) 1.72 X 10*3/uL (0.90-5.00); Lymphocytes % (A) 10.2 %; MCH 31.6 pg (27.0-32.0); MCHC 33.2 g/dL (32.0-37.0); Mean Platelet Volume 9.6 FL (9.5-12.2); Monocytes # (A) 1.22 X 10*3/uL (0.20-1.00); Monocytes % (A) 7.2 %; NRBC Per 100 WBC 0 X 10*3/uL (0.00-0.01); Neutrophils # (A) 13.55 X 10*3/uL (1.80-7.70); Neutrophils % (A) 80.1 %; Platelet Count 329 X 10*3/uL (140-440); RBC 3.61 X 10*6/uL (4.40-5.60); RDW 12.4 % (11.5-14.5); WBC 16.91 X 10*3/uL (4.50-10.00)
--- NOTE | 2024-09-11 08:40 | P.PN ---
Subjective Progress Note Date: 09/11/24 Principal diagnosis: Thoracic myelopathy Patient seen and examined this morning. Patient is resting comfortably in bed. He does report that he has not been up since his procedure. Patient does state that he notices improvement of his ability to move his lower extremities since the procedure. He denies any numbness or tingling into the lower extremities. Patient states that his pain is managed on current regimen, although he has not been provided oral pain medication at this time. Oral pain medication has been scheduled. Surgical incision to the lumbar spine, dressing is clean dry and intact with Hemovac present with 200 mL output overnight. Patient is requesting for possible discharge later today. Informed patient the protocol for the drain in order for it to be discontinued. Patient does verbalize understanding. Neal catheter is present and patent, this may be removed this morning. Patient does report that he has a walker at home. Discussed with patient that physical therapy will begin to work with him today. Encourage patient to be up out of b ed for all meals. Encourage incentive spirometer 10 times per hour while awake. No acute concerns at this time. Objective - Vital Signs Vital signs: Vital Signs Temp 97.6 F 09/11/24 01:25 Pulse 74 09/11/24 01:25 Resp 18 09/11/24 01:25 BP 103/63 09/11/24 01:25 Pulse Ox 99 09/11/24 01:25 FiO2 Intake & Output 09/10/24 09/11/24 09/11/24 18:59 06:59 18:59 Intake Total 3052 Output Total 1999 1700 Balance 1052 -1700 Weight 81.8 kg 81.8 kg Intake: IV 3052 Output: Urine 1750 1700 Estimated Blood Loss 250 Other: Voiding Method Indwelling Catheter - Exam Physical Examination General: The patient is awake and alert, in no acute distress Skin: Skin is warm and dry with no obvious rashes or lesions. Surgical incision to the lumbar spine, dressing is clean dry and intact with Hemovac present with documented 200 mL output overnight. Neck: The neck is supple, there is no tenderness and ROM intact. Respiratory: Respirations are non-labored, breath sounds are equal. Gastrointestinal: Soft, non-distended, non-tender abdomen. Back: There is mild tenderness to palpation around the surgical incision. There is no obvious deformity . Musculoskeletal: ROM limited secondary to pain and stiffness from surgical procedure. Right: Shoulder abduction 5/5, elbow flexors 5/5, wrist dorsiflexors 5/5. finger abductor 5/5, human resources designate 5/5, hip flexor 4/5, knee flexor 4/5, ankle dorsiflexor 5/5, ankle plantarflexion 5/5 and extensor hallucis 5/5. Left: Shoulder abduction 5/5, elbow flexors 5/5, wrist dorsiflexors 5/5. finger abductor 5/5, human resources designate 5/5, hip flexor 4/5, knee flexor 4/5, ankle dorsiflexor 5/5, ankle plantarflexion 5/5 and extensor halluci s 5/5. Neurological: CN 2-12 intact. There are no obvious motor or sensory deficits. Movement and coordination equal and intact. Sensory exam to light touch intact C5-T1 and intact from L2-S1. Reflexes 2/4 in bilateral upper and lower extremities. Negative Hoffmans, babinski, and clonus signs. Psychiatric: Cooperative, appropriate mood & affect, normal judgment. - Labs CBC & Chem 7: 09/10/24 11:04 09/10/24 11:04 Labs: Abnormal Lab Results - Last 24 Hours (Table) 09/10/24 09/10/24 Range/Units 11:04 11:04 WBC 13.6 H (3.8-10.6) k/uL RBC 4.08 L (4.30-5.90) m/uL Hct 38.3 L (39.0-53.0) % Plt Count 451 H (150-450) k/uL Neutrophils # 9.7 H (1.3-7.7) k/uL Sodium 136 L (137-145) mmol/L Assessment and Plan Assessment: Postop day 1: T11-T12 decompression and fusion posterior lateral and interbody with T11-L2 decompression Plan: -Appreciate devops consultant and team management. -Activity: Ambulate QID, OOB all meals, up and about, limit lifting bending twisting to less than 5 lbs. Use walker or cane if needed for stability. -Daily PT/OT, increase ambulation strength and balance. Patient does not need a brace. -Pain control: Adequate at this time -Meds: reviewed -GI ppx: senna, Miralax -LARRY neal this morning -DVT PPX: Aspirin 81mg -Hygiene: Maintain dressing clean and dry. Meticulous cleaning after BMs away from the incision site -Drains: Maintain for now. Continue to monitor and record output q shift. -Encourage IS 10x/hr -Dispo: Anticipate discharge home within the next 48 hrs *I reviewed and discussed this case with my attending Dr. Alcantara, whom has reviewed this chart and films and is in agreement with assessment and plan of care as outlined above. I have personally seen and examined the patient, performed the documentation and the assessment and plan as written. Number of minutes spent on the visit: 20m.
[2024-09-11 08:54] LABS: BUN/Creat Ratio 16.62 Ratio (12.00-20.00); Blood Urea Nitrogen 13.3 mg/dL (9.0-27.0); Calcium 8.9 mg/dL (8.7-10.3); Carbon Dioxide 24.5 mmol/L (21.6-31.8); Chloride 100 mmol/L (96-109); Glucose 108 mg/dL (70-110); Potassium 4.4 mmol/L (3.5-5.5); Sodium 137 mmol/L (135-145)
[2024-09-11] MEDS: lisinopriL 10 MG TAB PO SCH (09:46)
[2024-09-11] MEDS: ONDANSETRON 4 MG/2 ML VIAL IVP PRN (09:46)
[2024-09-11] MEDS: HYDROcodone/APAP 10-325MG 1 EACH TAB PO SCH (09:47)
[2024-09-11] MEDS: SENNOSIDES-DOCUSATE SODIUM 1 EACH TAB PO SCH (09:47)
--- NOTE | 2024-09-11 12:06 | CT ---
EXAMINATION TYPE: CT thor lumbar spine wo con CT DLP: 1112.9 mGycm, Automated exposure control for dose reduction was used. DATE OF EXAM: 09/11/2024 10:57 AM CLINICAL INDICATION:Male, 58 years old with history of s/p T11-1 LAMINECTOMY DECOMPRESSION WITH DISCE COMT; post-op COMPARISON: Thoracic radiograph 09/02/2024, MR thoracic spine 09/06/2024, lumbar spine radiograph /05/2023, MR C-spine/L spine 09/11/2022. TECHNIQUE: Axial images of the thoracic and lumbar spine were obtained without contrast. Coronal and sagittal reformats were performed. CT Contrast: Contrast used: none. Oral contrast used: none. FINDINGS: Postsurgical changes from fusion with bilateral pedicle screws and rods and laminectomy involving T11 -T12. Hardware creates streak artifact which limits evaluation. Disc spacer identified. Hardware appe ars intact with appropriate alignment. No gross evidence of significant central canal stenosis at thi s level There is midline posterior superficial skin vishnu identified. Surrounding soft tissue edema and gas demonstrated. Fluid and gas is identified within the laminectomy bed. Drainage catheter iden tified exiting the right mid back. Distal tip of the catheter is in the laminectomy bed on the left a t L1. No acute fracture. Multilevel degenerative disc disease of the mid thoracic spine with disc spa ce narrowing, endplate sclerosis, vacuum disease, and osteophytosis. At least mild central canal sten osis from T8 through T10 with multilevel disc bulges. Mild to moderate bilateral neural foraminal mei nosis suggested at T8-T10. Additional prior postsurgical changes with bilateral pedicle screws and rods and disc spacers at L4-S 1. Scarring demonstrated within the surgical bed. Grade 1 anterolisthesis of L4 on L5. No gross evide nce of significant central canal stenosis at these levels with the limitations from streak artifact. Moderate bilateral neural foraminal stenosis suggested at L1-L2. Groundglass patchy opacities within the visualized right upper lobe. IMPRESSION: 1. Postsurgical changes from T11-T12 decompression laminectomy with discectomy. Hardware appears int act and appropriately aligned. There is associated postsurgical edema/fluid and gas. 2. Prior postsurgical changes from posterior lumbosacral fusion L4-S1. Hardware appears intact. 3. Patchy groundglass opacities within the visualized right upper lobe concerning for atypical pneum onia. [facility], , 09/11/2024 12:04 PM
--- NOTE | 2024-09-11 14:06 | P.PN ---
Subjective Progress Note Date: 09/11/24 58 year old M with PMH HTN, GERD presents to [facility] for elective surgery. He underwent T11-12 posterior lateral and anterior body fusion with decompressive laminectomy with Dr. Alcantara. [facility] Physicians consulted for medical management of this patient. 09/11 Patient was seen and examined. No acute events overnight. No complaints. Well controlled pain. Kiser catheter discontinued today. No bowel movement but passing a little gas. CBC, BMP significant for WBC 16.91, RBC 3.61, Hg 11.4, Hct 34.3, AG 12.5. General: non toxic, no distress, appears at stated age Derm: warm, dry Head: atraumatic, normocephalic, symmetric Eyes: EOMI, no lid lag, anicteric sclera Mouth: no lip lesion, mucus membranes moist Cardiovascular: good distal perfusion in all 4 extremities Lungs: breathing comfortably, no accessory muscle use Ext: no gross muscle atrophy, no edema, no contractures Neuro: no focal neuro deficits Psych: Alert, oriented, appropriate affect Based on my assessment of this patient, this patient meets a moderate complexity level of care. Leukocytosis: Likely reactive with no signs of infection. Continue to monitor fever profile. Acute blood loss anemia which is an expected result of surgery HTN: Lisinopril 10 mg PO QD. GERD: Protonix 40 mg PO QD. CODE STATUS: FULL CODE DVT Prophylaxis: ASA GI Prophylaxis: Protonix Designated medical POA if patient is not able to make medical decisions for themselves: I have reviewed the following warehouse consultant notes: Ortho. I have reviewed the results of the following tests: CBC, BMP. I have ordered the following tests: I have discussed the care of this patient with the following independent historian: I have independently interpreted the following test below: Objective - Vital Signs Vital signs: Vital Signs Temp 97.8 F 09/11/24 08:00 Pulse 85 09/11/24 08:00 Resp 16 09/11/24 08:00 BP 139/93 09/11/24 08:00 Pulse Ox 99 09/11/24 01:25 FiO2 Intake & Output 09/10/24 09/11/24 09/11/24 18:59 06:59 18:59 Intake Total 3052 Output Total 1999 1700 595 Balance 1052 -1700 -595 Weight 81.8 kg 81.8 kg Intake: IV 3052 Output: Drainage 45 Back 45 Urine 1750 1700 550 Uretheral (Kiser) 550 Estimated Blood Loss 250 Other: Voiding Method Indwelling Catheter Indwelling Catheter - Labs CBC & Chem 7: 09/11/24 03:10 09/11/24 03:10 Labs: Abnormal Lab Results - Last 24 Hours (Table) 09/11/24 09/11/24 Range/Units 03:10 03:10 WBC 16.91 H (4.50-10.00) X 10*3/uL RBC 3.61 L (4.40-5.60) X 10*6/uL Hgb 11.4 L (13.0-17.0) g/dL Hct 34.3 L (39.6-50.0) % Immature Gran # 0.38 H (0.00-0.04) X 10*3/uL Neutrophils # 13.55 H (1.80-7.70) X 10*3/uL Monocytes # 1.22 H (0.20-1.00) X 10*3/uL Eosinophils # 0.01 L (0.04-0.35) X 10*3/uL Anion Gap 12.50 H (4.00-12.00) mmol/L
[2024-09-11] MEDS: CYCLOBENZAPRINE 5 MG TAB PO PRN (16:17)
[2024-09-11] MEDS: ASPIRIN 81 MG PO SCH (20:49)
[2024-09-12 08:37] VITALS: BP 117/51; PULSE 90; RESP 16; TEMP 97
--- NOTE | 2024-09-12 09:09 | P.PN ---
Subjective Progress Note Date: 09/12/24 Principal diagnosis: Thoracic myelopathy Patient seen and examined this morning. Patient is sitting up in chair at bedside. Patient does state that he continues to notice improvements in his ability to move his right lower extremity since the procedure. He denies any numbness or tingling into the lower extremities. Patient states that his pain is managed on current regimen. Surgical incision to the lumbar spine, edges are well-approximated with vishnu intact. Hemovac drain has been removed and new dressing has been applied. Patient states that he is looking forward to discharge later this morning. No acute concerns at this time. Objective - Vital Signs Vital signs: Vital Signs Temp 99 F 09/12/24 02:00 Pulse 97 09/12/24 02:00 Resp 18 09/12/24 02:00 BP 91/60 09/12/24 02:00 Pulse Ox 97 09/12/24 02:00 FiO2 Intake & Output 09/11/24 09/12/24 09/12/24 18:59 06:59 18:59 Output Total 715 80 Balance -715 -80 Output: Drainage 165 80 Back 165 80 Urine 550 Uretheral (Neal) 550 Other: Voiding Method Indwelling Catheter Toilet # Voids 1 4 - Exam Physical Examination General: The patient is awake and alert, in no acute distress Skin: Skin is warm and dry with no obvious rashes or lesions. Surgical incision to the lumbar spine, edges are well-approximated with vishnu intact. Hemovac drain has been removed and new dressing applied. Neck: The neck is supple, there is no tenderness and ROM intact. Respiratory: Respirations are non-labored, breath sounds are equal. Gastrointestinal: Soft, non-distended, non-tender abdomen. Back: There is mild tenderness to palpation around the surgical incision. There is no obvious deformity . Musculoskeletal: ROM limited secondary to pain and stiffness from surgical procedure. Right: Shoulder abduction 5/5, elbow flexors 5/5, wrist dorsiflexors 5/5. finger abductor 5/5, food truck caterer 5/5, hip flexor 4/5, knee flexor 4/5, ankle dorsiflexor 5/5, ankle plantarflexion 5/5 and extensor mccall llucis 5/5. Left: Shoulder abduction 5/5, elbow flexors 5/5, wrist dorsiflexors 5/5. finger abductor 5/5, food truck caterer 5/5, hip flexor 4/5, knee flexor 4/5, ankle dorsiflexor 5/5, ankle plantarflexion 5/5 and extensor hallucis 5/5. Neurological: CN 2-12 intact. There are no obvious motor or sensory deficits. Movement and coordination equal and intact. Sensory exam to light touch intact C5-T1 and intact from L2-S1. Reflexes 2/4 in bilateral upper and lower extremities. Negative Hoffmans, babinski, and clonus signs. Psychiatric: Cooperative, appropriate mood & affect, normal judgment. - Labs CBC & Chem 7: 09/11/24 03:10 09/11/24 03:10 Labs: Abnormal Lab Results - Last 24 Hours (Table) 09/11/24 09/11/24 Range/Units 03:10 03:10 WBC 16.91 H (4.50-10.00) X 10*3/uL RBC 3.61 L (4.40-5.60) X 10*6/uL Hgb 11.4 L (13.0-17.0) g/dL Hct 34.3 L (39.6-50.0) % Immature Gran # 0.38 H (0.00-0.04) X 10*3/uL Neutrophils # 13.55 H (1.80-7.70) X 10*3/uL Monocytes # 1.22 H (0.20-1.00) X 10*3/uL Eosinophils # 0.01 L (0.04-0.35) X 10*3/uL Anion Gap 12.50 H (4.00-12.00) mmol/L Assessment and Plan Assessment: Postop day 2: T11-T12 decompression and fusion posterior lateral and interbody with T11-L2 decompression Plan: -Appreciate home performance consultant and team management. -Activity: Ambulate QID, OOB all meals, up and about, limit lifting bending twisting to less than 5 lbs. Use walker or cane if needed for stability. -Daily PT/OT, increase ambulation strength and balance. Patient does not need a brace. -Pain control: Adequate at this time -Meds: reviewed -GI ppx: senna, Miralax -LARRY neal this morning -DVT PPX: Aspirin 81mg -Hygiene: Maintain dressing clean and dry. Meticulous cleaning after BMs away from the incision site -Encourage IS 10x/hr -Dispo: Discharge home today *I reviewed and discussed this case with my attending Dr. Alcantara, whom has reviewed this chart and films and is in agreement with assessment and plan of care as outlined above. I have personally seen and examined the patient, performed the documentation and the assessment and plan as written. Number of minutes spent on the visit: 20m.
[2024-09-12] MEDS: oxyCODONE-APAP 5-325MG 1 EACH TAB PO SCH (09:13)
--- NOTE | 2024-09-12 09:25 | P.DS ---
Providers Date of admission: 09/10/24 10:27 Expected date of discharge: 09/12/24 Attending physician: Brandon Alcantara DO Consults: 09/10/24 16:33 Consult Physician Routine Consulting Provider: Siri Rizo Consult Reason/Comments: medical management T11-1 LAMINECTOMY DECOMPRESSION WITH DISCECOMTY AND STAB Do you want consulting provider notified?: Yes Primary care physician: Mitchel Caruso [facility] Course: Hospital Course: The patient was evaluated preoperatively and found to have the diagnosis of thoracic myelopathy. They underwent appropriate preoperative care and were willing to undergo the intended procedure. They underwent a successful T11-T12 laminectomy with discectomy and stabilization L1-L2 laminectomy, were recovered appropriately and sent to the floor. While on the floor they worked with physical therapy, occupational therapy and nursing to enhance their recovery experience. Their pain was well controlled through their stay and they were started on appropriate medications, DVT ppx modalities, activity and dietary needs. Daily labs were monitored closely, and transfusions were only used when necessary. Medicine as well as other consulting services have made their input and have helped with our team approach and multidisciplinary care. PT milestones have been met and passed and they have made the recommendation of home for this patient and treating providers agree with this care path. The patient will be discharged home with appropriate medications, instructions and follow-up information and in stable condition. Patient Condition at Discharge: Good Plan - Discharge Summary Discharge Rx Participant: No New Discharge Prescriptions: New Sennosides/Docusate Sodium [Senna Plus 8.6-50 mg Softgel] 1 each PO DAILY PRN #20 capsule PRN Reason: Constipation Aspirin 81 mg PO DAILY #14 tab cefaDROXiL [Duricef] 500 mg PO Q12HR #10 cap oxyCODONE HCL/ACETAMINOPHEN [Percocet 5-325 mg] 1 tab PO Q4HR PRN #40 tab PRN Reason: Pain No Action methocarbamoL 500 mg PO TID PRN PRN Reason: Muscle Pain Celecoxib 200 mg PO DAILY lisinopriL [Zestril] 10 mg PO DAILY Pantoprazole [Protonix] 40 mg PO DAILY Gabapentin 300 mg PO TID HYDROcodone/APAP 7.5-325MG [[place] 7.5-325] 1 tab PO QID PRN PRN Reason: Pain Discharge Medication List Celecoxib 200 mg PO DAILY 09/10/24 [History] Gabapentin 300 mg PO TID 09/10/24 [History] HYDROcodone/APAP 7.5-325MG [[place] 7.5-325] 1 tab PO QID PRN 09/10/24 [History] Pantoprazole [Protonix] 40 mg PO DAILY 09/10/24 [History] lisinopriL [Zestril] 10 mg PO DAILY 09/10/24 [History] methocarbamoL 500 mg PO TID PRN 09/10/24 [History] Aspirin 81 mg PO DAILY #14 tab 09/11/24 [Rx] Sennosides/Docusate Sodium [Senna Plus 8.6-50 mg Softgel] 1 each PO DAILY PRN #20 capsule 09/11/24 [Rx] cefaDROXiL [Duricef] 500 mg PO Q12HR #10 cap 09/11/24 [Rx] oxyCODONE HCL/ACETAMINOPHEN [Percocet 5-325 mg] 1 tab PO Q4HR PRN #40 tab 09/12/24 [Rx] Follow up Appointment(s)/Referral(s): Mitchel Maya MD [Primary Care Provider] - 09/18/24 2:30 pm Brandon Alcantara DO [Doctor of Osteopathic Medicine] - 09/26/24 2:00 pm Activity/Diet/Wound Care/Special Instructions: Spine Discharge and Recovery Instructions Date of Surgery: 09/10/2024 Diagnosis: Thoracic myelopathy Procedure: T11-T12 decompression and fusion posterior lateral and interbody with T11-L2 decompression Medications: See medication list All medication refills should be obtained through your primary care doctor or your clinic spine surgeon. Please discuss prescription refills at your follow up appointment. Do not call the hospital for medication refills. Activity: Encourage ambulation with assist of walker, Up and about 6-8x daily PT/OT daily work on balance, strength and mobility Up in chair with all meals Shower daily Brace: Use brace when up and about, do not wear in bed or shower Dressing: Leave your dressing in place for a total of 3 days post operatively. Then you may remove your dressing and leave open to air. Keep the area clean and if not able to keep area clean, then cover with sterile gauze and tape. Showering: You may shower 3 days after your procedure allowing soap and water to run over incision. Do not scrub. Do not soak. Blot dry. Follow up: Please confirm a follow up appointment with your surgeon 2 weeks post operatively. Please make an appointment to follow up with your PCP in 1-2 weeks after surgery for evaluation '3 phase, 3-week plan' POST OP WEEKS 1-3 1. Lifting/carrying/pushing/pulling limited to less than 5 pounds. 2. Do not sit for longer than 15 minutes at one time. Get up and walk around. Prolonged sitting is NOT advised. If you lay down, see if you can tolerate laying down on you front (belly side) 3. Walk for periods of 15 minutes = 1 mile but no longer; do it multiple times times each day. 4. Ice your low back after activity. POST OP WEEKS 3-6 1. Lifting limited to less than 20 pounds. 2. Do not sit for longer than 30 minutes at a time. Frequently change positions. Use a sit-to stand workstation or take frequent breaks from sitting if you have returned to work. 3. Walk for 30 minutes each day. If possible, do these three or more times a day POST OP WEEKS 6+ At your 6-week appointment we will give you a physical therapy referral to focus on a core stabilization and strengthening program. You should also work on leg & buttock strengthening, hamstring & quadriceps stretching, and continue a low impact aerobic activity program such as swimming, walking, or riding a stationary bicycle. During the initial 6 weeks after your surgery, you are at the highest risk of re-injuring your spine. You should generally avoid BLT's (bending, lifting and twisting combination motions) and follow the above guidelines to reduce the chance of reinjury. You can anticipate post op appointments in our office at approximately 3 weeks and 6 weeks after your surgery. INCISION CARE: If your incision is not draining you do NOT need to cover it with a dressing. Keep your incision clean, dry and intact. In most cases, we apply skin glue, vishnu or sutures to the incision at the time of surgery. This will be like a crust or have the appearance of a scab and will fall off in time on its own. The stitches or vishnu need to be removed at 3 weeks post op appointment. You may begin to shower 3 days after surgery (this allows the glue to santana well). However, please avoid scrubbing the incision site or peeling off any of the skin glue. This will ensure optimal healing of your incision. Also, during this time avoid soaking the incision area in water - this includes swimming pools, hot tubs or baths. No ointments, lotions or oils on the incision until your surgeon allows. Leave vishnu, sutures or glue in place. Neurological dysfunction that comes on suddenly can also be a sign of a stroke. Below some common symptoms of a stroke are listed: B - balance difficulty such as sudden onset walking or leaning to one side - NEW E - eye problem such as sudden double vision or trouble seeing on one side - NEW F - Facial weakness or numbness on one side - NEW A - Arm or leg weakness or numbness on one side - NEW S - Slurred speech or difficulty with word finding - NEW T - Time is BRAIN! Call 911 as soon as you recognize these symptoms Diet: Consume a regular diet rich in vegetables and lean protein such as chicken or fish. You should consume in a ratio of approximately 20% fats|40% carbohydrates|40%protein. Vegetables, sweet potatoes, brown rice or quinoa are examples of good carbohydrates. Chips, white bread, cookies and sweets/sugar are examples of bad carbohydrates. Limit your bad carbs, go wild with good carbs. "Life's Simple 7" Guidelines as per [place] [employer] These will help you reclaim your life after surgery and kennel helper in your recovery, keeping in mind your restrictions. (1) Get Active. Physical activity can help people lose weight, control high blood pressure and cholesterol, feel emotionally better, and sleep better. (2) Control Cholesterol. Avoid a diet high in saturated fat, trans fat, & cholesterol. Limit whole milk & cream, ice cream, butter, egg yolks, processed meats (like sausage and hot dogs), and fatty meats. Choose healthy foods that are low in saturated fat, trans fat and cholesterol which include: Fruits and vegetables, fiber rich grain products (like whole grain pasta and brown rice), lean meat such as chicken, fish, nuts, seeds, and legumes. (3) Eat Better. Eat small portions. Shop at the grocery with a list and do not stray from it. Tips for a healthy diet include: Limit sodium intake to less than 1500mg daily, avoid prepackaged, processed, and fast foods, choose a diet rich in fruits, vegetables, and whole grain, high fiber foods, and limit saturated & cholesterol in your diet. (4) Manage Blood Pressure. If you have high blood pressure, you should have a cuff at home so that you can check your blood pressure regularly. Be sure you have a good cuff. An arm one is generally better than a wrist one. Bring the cuff to a doctor's appointment to validate that the measurements that your cuff are taking are accurate. Take your blood pressure twice daily when you are sitting down and relaxing. Record the numbers in a log and bring this log with you to your doctors' appointments. (5) Lose Weight if your BMI is above 25. A healthy BMI is between 19-25. To calculate Your BMI, you may use a Standard BMI Calculator on the NIH BMI website: <www.nhlbi.nih.gov/guidelines/obesity/BMI/bmicalc.htm>. Weigh oneself daily. If you are overweight, set a goal to lose weight. A pound a week loss if needed is a good target. (6) Reduce Blood Sugar. Limit foods and liquids with "added sugars." (Added sugars include sucrose, fructose, glucose, maltose, dextrose, high fructose corn syrup, corn syrup, concentrated fruit juice and honey). (7) Stop Smoking. If you smoke, quitting smoking is one of the best things that you can do for your health. Smoking increases your risk of heart attack, stroke, and peripheral vascular disease, which is a build-up of plaque in your arteries. Please discard all the cigarettes and lighters in your house. Have a plan for what you will do when you have the urge to smoke. Direct and second- hand smoke shortens your life as well as the lives of your family, friends and others around you. For your health and the health of those around you, please consider quitting! Proper Bending Body Mechanics: Maintain a wide stance with one foot slightly in front of the other. Keep your back straight. Bend utilizing the strength in your hips and knees. Do not bend at the waist. Maintain the lifted object at your waist-level close to your body. Avoid lifting weight that causes immediately pain or pain anywhere in the body afterwards. Smoking/Nicotine If there was ever one thing that you could do to increase your overall health, decrease your risk of cardiovascular problems by about 39% the second you make the choice, it is to STOP SMOKING. Your body's most instant gratification is the second you stop smoking. We have all heard the studies, read the articles but it is true, smoking is extremely bad for your overall health, and moreover it is detrimental to your bone health. Nicotine, IN ANY FORM, kills bone cells, prevents your body from healing fractures, and significantly prolongs healing after surgery. In spine surgery specifically, it increases your risk of not healing your bones to create a fusion and increases your risk of having a revision surgery due to this up to 60%. I know it is hard. I know it feels impossible. But there are ways. Take control of your life. We are here to help you through it. And when you are ready, ask us and we can direct you to help if you desire. Use the START Plan to Quit Smoking (please visit the [employer]org website listed below for more information): S = Set a quit date. Choose a date within the next 2 weeks, so you have enough time to prepare without losing your motivation to quit. If you mainly smoke at work, quit on the weekend, so you have a few days to adjust to the change. T = Tell family, friends, and co-workers that you plan to quit. Let your friends and family in on your plan to quit smoking and tell them you need their support and encouragement to stop. Look for a quit billy who wants to stop smoking as well. You can help each other get through the rough times. A = Anticipate and plan for the challenges you'll face while quitting. Most people who begin smoking again do so within the first 3 months. You can help yourself make it through by preparing ahead for common challenges, such as nicotine withdrawal and cigarette cravings. R = Remove cigarettes and other tobacco products from your home, car, and work. Throw away all your cigarettes (no emergency pack!), lighters, ashtrays, and matches. Wash your clothes and freshen up anything that smells like smoke. Shampoo your car, clean your drapes and carpet, and steam your furniture. T = Talk to your doctor about getting help to quit. Your doctor can prescribe medication to help with withdrawal and suggest other alternatives. If you can't see a doctor, you can get many products over the counter at your local pharmacy or grocery store, including the nicotine patch, nicotine lozenges, and nicotine gum. Resources for Quitting Smoking: <https://www.[place].gov/ documents/[facility]/Quit_Tobacco_Resources_for_patients_313480_7.pdf> Supplementation: Take recommended dosages of Vitamin D and Calcium to help fortify your bones and help them to heal. See your health maintenance packet for dosages and recommended levels. DVT/VTE prophylaxis: You will be given compression stockings from the hospital. Wear these daily for the first two weeks after surgery. You may take them off at night. You may be prescribed a medication to help thin your blood. Take this as directed. If you are not prescribed this medication, early and frequent ambulation has been shown to be the best prophylaxis to deep vein thrombosis and sequelae related to this event. Discharge Disposition: HOME SELF-CARE
[2024-09-12 09:38] LABS: Basophils # (A) 0.1 k/uL (0-0.2); Basophils % (A) 0 %; Eosinophils # (A) 0.2 k/uL (0-0.7); Eosinophils % (A) 1 %; HCT 35.7 % (39.0-53.0); HGB 11.8 gm/dL (13.0-17.5); Lymphocytes # (A) 1.7 k/uL (1.0-4.8); Lymphocytes % (A) 10 %; MCH 31.8 pg (25.0-35.0); MCV 96.3 fL (80.0-100.0); Mean Platelet Volume 7.3; Monocytes # (A) 1.2 k/uL (0-1.0); Monocytes % (A) 7 %; Neutrophils % (A) 81 %; Platelet Count 362 k/uL (150-450); RDW 12.2 % (11.5-15.5); WBC 17.3 k/uL (3.8-10.6)
--- NOTE | 2024-09-12 10:06 | XR ---
EXAMINATION TYPE: XR chest 1V portable DATE OF EXAM: 09/12/2024 Comparison: 09/07/2024 Clinical History: 58-year-old male with fever Findings: Heart normal size. Aorta and pulmonary vasculature within normal limits. Old healed anterior right ri b fracture deformities. Increased central interstitial density. Posterior lower thoracic fusion hardw are. Midline skin vishnu noted. Some possible developing nodularity at the right mid to lower lung. Impression: Subtle interstitial infiltrates. Correlate for atypical or COVID pneumonias. An area of nodularity at the right mid to lower lung may be inflammatory as well. Follow-up after treatment to ensure clearan ce. [facility], , 09/12/2024 10:03 AM
[2024-09-12 10:26] LABS: Appearance,Urine Clear (Clear); Bilirubin,Urine Negative (Negative); Blood,Urine Moderate (Negative); Color,Urine Light Yellow; Glucose,Urine (UA) Negative (Negative); Ketones,Urine Negative (Negative); Leukocyte Esterase,Urine Negative (Negative); Mucus,Urine Rare /hpf; Nitrite,Urine Negative (Negative); Protein,Urine Trace (Negative); RBC,Urine 6 /hpf (0-5); Specific Gravity,Urine 1.014 (1.001-1.035); Squamous Epithelial Cell,Urine <1 /hpf (0-4); Urobilinogen,Urine <2.0 mg/dL (<2.0); WBC,Urine 3 /hpf (0-5)
--- NOTE | 2024-09-12 11:37 | P.PN ---
Subjective Progress Note Date: 09/12/24 Patient had a fever 100.9 last night. Patient states that he has some congestion and cough. Chest x-ray was done that shows findings consistent with atypical infection. 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 Patient has a WBC count and cough. I will discharge him on Levaquin. Patient otherwise satting well on room air. So is stable for discharge. Blood culture also ordered which I will follow-up on. WBC count is 17 which is trending up. Acute blood loss anemia Hemoglobin this morning is 11.8 which is stable Hypertension Continue lisinopril 10 mg p.o. daily GERD Continue Protonix 40 mg p.o. daily Patient stable for discharge from medical standpoint. I have completed medication reconciliation and have sent Levaquin to his pharmacy. Objective - Vital Signs Vital signs: Vital Signs Temp 97.0 F L 09/12/24 07:14 Pulse 90 09/12/24 09:00 Resp 16 09/12/24 09:00 BP 117/51 09/12/24 07:14 Pulse Ox 96 09/12/24 07:14 FiO2 Intake & Output 09/11/24 09/12/24 09/12/24 18:59 06:59 18:59 Output Total 715 80 Balance -715 -80 Output: Drainage 165 80 Back 165 80 Urine 550 Uretheral (Kiser) 550 Other: Voiding Method Indwelling Catheter Toilet Toilet # Voids 1 4 - Labs CBC & Chem 7: 09/12/24 09:15 09/11/24 03:10 Labs: Abnormal Lab Results - Last 24 Hours (Table) 09/12/24 09/12/24 Range/Units 09:15 10:00 WBC 17.3 H (3.8-10.6) k/uL RBC 3.70 L (4.30-5.90) m/uL Hgb 11.8 L (13.0-17.5) gm/dL Hct 35.7 L (39.0-53.0) % Neutrophils # 14.0 H (1.3-7.7) k/uL Monocytes # 1.2 H (0-1.0) k/uL Urine Protein Trace H (Negative) Urine Blood Moderate H (Negative) Urine RBC 6 H (0-5) /hpf Urine Mucus Rare H (None) /hpf
== END 2024-09-12 12:49 | disposition home or self-care (01) ==
LOC: OR 10:26 → 4SSUR 10:26 → OR 10:27 → 4SSUR 10:27
PROVIDERS: ADMIT Orthopaedic Surgery; ATTEND Orthopaedic Surgery
DX: M51.04 Intervertebral disc disorders with myelopathy, thoracic region (principal); M48.04 Spinal stenosis, thoracic region; M51.26 Other intervertebral disc displacement, lumbar region; D62 Acute posthemorrhagic anemia; I10 Essential (primary) hypertension; K21.9 Gastro-esophageal reflux disease without esophagitis; J18.9 Pneumonia, unspecified organism; Z79.1 Long term (current) use of non-steroidal anti-inflammatories (NSAID); Z79.899 Other long term (current) drug therapy
CPT/HCPCS: 22610; 22853; 22840; 20930; 20936; 88304; 80053; 80048; 85025 ×3; 81001; 87040; 88311; 87636; 72070; 71045; 72128; 72131; 63046; 63048; G0378 ×2; C1713 ×2; J2250; J3370; J0330; J1171 ×4; J1580; J1100; J2710; J0690 ×3; J2405 ×2; J2003; J3010; J2704; J2371; J1920; J1596

== ENCOUNTER 2024-09-26 16:51 | Inpatient (IN) | payer BC ==
[2024-09-26 17:25] LABS: Basophils # (A) 0.1 k/uL (0-0.2); Basophils % (A) 1 %; Eosinophils # (A) 0.5 k/uL (0-0.7); Eosinophils % (A) 7 %; HCT 33.8 % (39.0-53.0); HGB 11.1 gm/dL (13.0-17.5); Lymphocytes # (A) 1.8 k/uL (1.0-4.8); Lymphocytes % (A) 24 %; MCH 30.8 pg (25.0-35.0); MCHC 32.9 g/dL (31.0-37.0); MCV 93.6 fL (80.0-100.0); Monocytes # (A) 0.6 k/uL (0-1.0); Monocytes % (A) 8 %; Neutrophils # (A) 4.4 k/uL (1.3-7.7); Neutrophils % (A) 57 %; Platelet Count 712 k/uL (150-450); RBC 3.61 m/uL (4.30-5.90); RDW 12.4 % (11.5-15.5); WBC 7.7 k/uL (3.8-10.6)
[2024-09-26 17:33] LABS: ALT 23 U/L (4-49); AST 25 U/L (17-59); African American GFR (CKD) >90 (>60 ml/min/1.73 sqM); Albumin 4.2 g/dL (3.5-5.0); Alkaline Phosphatase 107 U/L (38-126); Anion Gap 9 mmol/L; Blood Urea Nitrogen 13 mg/dL (9-20); Calcium 9.6 mg/dL (8.4-10.2); Carbon Dioxide 23 mmol/L (22-30); Chloride 103 mmol/L (98-107); Glucose 100 mg/dL (74-99); Non-African American GFR(CKD) >90 (>60 ml/min/1.73 sqM); Sodium 135 mmol/L (137-145); Total Bilirubin 0.5 mg/dL (0.2-1.3); Total Protein 7.3 g/dL (6.3-8.2)
[2024-09-26 17:50] LABS: INR 0.9 (<1.2); Partial Thromboplastin Time 27.9 sec (22.0-30.0); Prothrombin Time 10.4 sec (10.0-12.5)
--- NOTE | 2024-09-26 18:03 | P.HPOR ---
History of Present Illness H&P Date: 09/26/24 Chief Complaint: THORACIC MYELOPATHY 58 yo male presented to the office for 2 week follow up from his thoracic decompression and stabilization. He states that after surgery he did very well but that he then went home and over the past week and a half he has had increasing and severe LE pain, weakness and now his RLE does not function as well as it has in the past. He and his states that they were initially encouraged after surgery because he had weakness from before surgery due to his thoracic issues, but that after surgery he was able to move his leg very well. He was walking around the room in the hospital and cleared PT on POD3 and went home. She states then he progressively became worse and now has reached somewhat of a steady state, but that he has become profoundly weaker. He denies any bowel or bladder issues. Denies any perineal numbnes/tingling at this time. States no other issues other than not being able to walk any longer. They initally did not call the office to report because they thought it might get better. Review of Systems 14 points review of systems completed and as stated in HPI, all other systems reviewed are negative. Past Medical History Past Medical History: Hypertension History of Any Multi-Drug Resistant Organisms: None Reported Past Surgical History: Back Surgery, Orthopedic Surgery Additional Past Surgical History / Comment(s): LEFT SHOULDER SCOPE, CERVICAL AND LUMBAR BACK SURGERY. Past Anesthesia/Blood Transfusion Reactions: No Reported Reaction Additional Past Anesthesia/Blood Transfusion Reaction / Comment(s): NEVER HAD A BLOOD TRANSFUSION Past Psychological History: No Psychological Hx Reported Smoking Status: Vaper Past Alcohol Use History: Occasional Past Drug Use History: Marijuana Medications and Allergies Home Medications Medication Instructions Recorded Confirmed Type Celecoxib 200 mg PO DAILY 09/10/24 09/26/24 History Gabapentin 300 mg PO TID 09/10/24 09/26/24 History Pantoprazole [Protonix] 40 mg PO DAILY 09/10/24 09/26/24 History lisinopriL [Zestril] 10 mg PO DAILY 09/10/24 09/26/24 History methocarbamoL 500 mg PO TID PRN 09/10/24 09/26/24 History ondansetron HCL [Zofran] 8 mg PO TID PRN 09/26/24 09/26/24 History oxyCODONE HCL/ACETAMINOPHEN 1 tab PO Q6HR PRN 09/26/24 09/26/24 History [Percocet 10-325 mg] Allergies Allergy/AdvReac Type Severity Reaction Status Date / Time No Known Allergies Allergy Verified 09/26/24 16:57 Physical Examination Osteopathic Statement: *. No significant issues noted on an osteopathic structural exam other than those noted in the History and Physical/Consult. PHYSICAL EXAMINATION: Vitals: Stable at this time General: Awake, alert, appropriate for age, in no acute distress. HEENT: No unusual neck masses around region of lateral neck triangle, thyroid, supraclavicular groove. Extremities: Skin warm and dry without no acute lesions, coloration, temperature, skin intact, no tenderness or erythema. Integument: Hairy patches: Absent Dorsal skin dimples: Absent Cafe au lait spots: Absent Surgical incisions: Healing well no signs of infection Palpation: Please see Pain drawing on Intake sheet for further detail. (Tenderness = T, Nontender = NT, Swelling = S, Ecchymosis = E) Findings on Midline and paraspinal palpation and percussion: Cervical: NT Thoracic: Mild Lumbar: NT Sacral: NT Special findings: None POSTURAL and MUSCULO-SKELETAL EVALUATION: Balanced at this time VASCULAR STATUS : Wrist Pulses: [2/4 bilateral radial and ulnar] Pedal Pulses: [2/4 bilateral DP and PT] Color: [Normal] Edema: [None] NEUROLOGIC EXAMINATION: Mental Status: Awake and alert, fully oriented, with normal attention, con centration and memory, and fluent, appropriate speech. Cranial Nerves: I: Olfactory not tested. II: Visual acuity normal, no visual field deficit noted with confrontation. III,IV: Normal pupillary reflexes & intact extraocular movements without nystagmus. V,: Intact symmetrical facial sensation. VII: Intact symmetrical facial motor movement VIII: Hearing intact. IX,X: Intact gag, swallow, & normal voice. XI: Sternocleidomastoid, trapezius function intact. XII: Tongue midline with normal movements. Special Tests: L'hermitte's Sign: Absent Spurling'Sign: Absent Bilateral Cubital percussion test: Absent Bilateral Leticia-Tinel sign - Carpal region: Absent Bilateral Straight Leg Raising: Absent Bilateral Motor Exam (0-5/5, N/T) STRENGTH UPPER EXTREMITY [5]/5 in all major muscle groups of the UE b/l [Except:] LOWER EXTREMITY Right lower extremity shows 3 out of 5 in quads 2 out of 5 in iliopsoas 3 out of 5 knee flexion dorsiflexion plantarflexion show 3 out of 5 in the right EHL FHL similar Left lower extremity shows 4+ out of 5 in all major muscle groups with less deficit however poor control REFLEXES Upper Extremity: RIGHT [2]/4 LEFT [2]/4 Lower Extremity: RIGHT 3+/4 LEFT 3+/4 Pathological Reflexes Bustos's: RIGHT [Absent] LEFT [Absent] Babinski: RIGHT [Absent] LEFT [Absent] Clonus: RIGHT 7 beats LEFT [None] SENSORY Pain and LT sense [Intact C5-T1 and L2-S1] Dermatomal deficit similar to prior to surgery L3-S1 due to previous surgery bilaterally and right lower extremity worse he is not having any symptoms dermatologically around the belt line T11 or 12 at this time Gait and Functional Evaluation: Ambulatory aids: Walker Myelopathic gait with high steppage gait dragging right foot foot drop right foot drop may be chronic due to his previous surgery however he has weakness in iliopsoas and the rectus femoris is new Results Stat CT was done at the hospital today and reviewed with the patient this demonstrates fluid collection in the surgical bed which is compressive showing distention of the thoracic or lumbar fascia as well as likely compression of the neurologic elements here. There is no evidence of infection and this seems to be a serous type fluid collection. - Labs Labs: Abnormal Lab Results - Last 24 Hours (Table) 09/26/24 09/26/24 Range/Units 17:10 17:10 RBC 3.61 L (4.30-5.90) m/uL Hgb 11.1 L (13.0-17.5) gm/dL Hct 33.8 L (39.0-53.0) % Plt Count 712 H (150-450) k/uL Sodium 135 L (137-145) mmol/L Glucose 100 H (74-99) mg/dL H & H 09/26/24 Range/Units 17:10 Hgb 11.1 L (13.0-17.5) gm/dL Hct 33.8 L (39.0-53.0) % Coagulation 09/26/24 Range/Units 17:10 INR 0.9 (<1.2) Result Diagrams: 09/26/24 17:10 09/26/24 17:10 Assessment and Plan Assessment: 58-year-old male status post thoracolumbar decompression with stabilization with wound bed fluid collection compressive Thoracic myelopathy Lower extremity weakness Hyperreflexia Plan: -Confirmed nothing by mouth for the past 8 hours -Admission for emergent surgery irrigation debridement thoracic spine
--- NOTE | 2024-09-26 18:05 | ED ---
General Adult HPI - General Chief complaint: Recheck/Abnormal Lab/Rx Stated complaint: surgery eval Time Seen by Provider: 09/26/24 16:55 Source: patient Mode of arrival: ambulatory Limitations: no limitations - History of Present Illness Initial comments: 58-year-old male brought into the emergency department by for right leg weakness. Patient had a lumbar decompression on 10 September. He felt well for 2 days. On the third day the patient began having some weakness in his right leg. His wanted him to get seen however the patient thought that his symptoms would go away. A few days ago the noted that the patient was having difficulty walking. They saw Dr. Eric's and today in office who sent him for an emergent CT. Dr. Eric does call the ED and reports that the patient does need an emergent decompression. Patient denies any pain. No wound dehiscence or drainage. No fevers. Denies any trauma to his lower back. No other alleviating, precipitating modifying factors - Related Data Home Medications Medication Instructions Recorded Confirmed Celecoxib 200 mg PO DAILY 09/10/24 09/26/24 Gabapentin 300 mg PO TID 09/10/24 09/26/24 Pantoprazole [Protonix] 40 mg PO DAILY 09/10/24 09/26/24 lisinopriL [Zestril] 10 mg PO DAILY 09/10/24 09/26/24 methocarbamoL 500 mg PO TID PRN 09/10/24 09/26/24 ondansetron HCL [Zofran] 8 mg PO TID PRN 09/26/24 09/26/24 oxyCODONE HCL/ACETAMINOPHEN 1 tab PO Q6HR PRN 09/26/24 09/26/24 [Percocet 10-325 mg] Allergies Allergy/AdvReac Type Severity Reaction Status Date / Time Gadolinium-Containing AdvReac Nausea Verified 09/26/24 17:56 Contrast Medi Review of Systems ROS Statement: Those systems with pertinent positive or pertinent negative responses have been documented in the HPI. ROS Other: All systems not noted in ROS Statement are negative. Past Medical History Past Medical History: Hypertension History of Any Multi-Drug Resistant Organisms: None Reported Past Surgical History: Back Surgery, Orthopedic Surgery Additional Past Surgical History / Comment(s): LEFT SHOULDER SCOPE, CERVICAL AND LUMBAR BACK SURGERY. Past Anesthesia/Blood Transfusion Reactions: No Reported Reaction Additional Past Anesthesia/Blood Transfusion Reaction / Comment(s): NEVER HAD A BLOOD TRANSFUSION Past Psychological History: No Psychological Hx Reported Smoking Status: Vaper Past Alcohol Use History: Occasional Past Drug Use History: Marijuana General Exam Limitations: no limitations Course Vital Signs 09/26/24 09/26/24 16:52 17:07 Temperature 98.4 F Pulse Rate 74 74 Respiratory 16 16 Rate Blood Pressure 129/80 129/80 O2 Sat by Pulse 100 100 Oximetry Medical Decision Making - Medical Decision Making Was pt. sent in by a medical professional or institution (, [facility], RHINOLOGIST, urgent care, hospital, or [place] [facility] facility...) When possible be specific @ -[No] Did you speak to anyone other than the patient for history (EMS, parent, family, police, friend...)? What history was obtained from this source @ -[No] Did you review nursing and triage notes (agree or disagree)? Why? @ -[I reviewed and agree with nursing and triage notes] Were old charts reviewed (outside hosp., previous admission, EMS record, old EKG, old radiological studies, urgent care reports/EKG's, [place] [facility] facility records)? Report findings @ -[No old charts were reviewed] Differential Diagnosis (chest pain, altered mental status, abdominal pain women, abdominal pain men, vaginal bleeding, weakness, fever, dyspnea, syncope, headache, dizziness, GI bleed, back pain, seizure, CVA, palpatations, mental health, musculoskeletal)? @ -[not applicable] EKG interpreted by me (3pts min.). @ -Yes and demonstrates sinus rhythm with a rate of 74 MI interval 163. QRS 114. QTc of 389. Inverted T wave lead III X-rays interpreted by me (1pt min.). @ -[None done] CT interpreted by me (1pt min.). @ -[None done] U/S interpreted by me (1pt. min.). @ -[None done] What testing was considered but not performed or refused? (CT, X-rays, U/S, labs)? Why? @ -[None] What meds were considered but not given or refused? Why? @ -[None] Did you discuss the management of the patient with other professionals (professionals i.e. , [facility], RHINOLOGIST, lab, RT, psych nurse, perinatal social worker, barrel cooper, teacher, traffic control officer, continuous pillowcase cutter)? Give summary @ -[No] Was smoking cessation discussed for >3mins.? @ -[No] Was critical care preformed (if so, how long)? @ -[No] Were there social determinants of health that impacted care today? How? (Homelessness, low income, unemployed, alcoholism, drug addiction, transportation, low edu. Level, literacy, decrease access to med. care, [facility], rehab)? @ -[No] Was there de-escalation of care discussed even if they declined (Discuss DNR or withdrawal of care, Hospice)? DNR status @ -[No] What co-morbidities impacted this encounter? (DM, HTN, Smoking, COPD, CAD, Cancer, CVA, ARF, Chemo, Hep., AIDS, mental health diagnosis, sleep apnea, morbid obesity)? @ -[None] Was patient admitted / discharged? Hospital course, mention meds given and route, prescriptions, significant lab abnormalities, going to OR and other pertinent info. @ -[hospital course] Undiagnosed new problem with uncertain prognosis? @ -[No] Drug Therapy requiring intensive monitoring for toxicity (Heparin, Nitro, Insulin, Cardizem)? @ -[No] Were any procedures done? @ -[No] Diagnosis/symptom? @ -[default] Acute, or Chronic, or Acute on Chronic? @ -[default] Uncomplicated (without systemic symptoms) or Complicated (systemic symptoms)? @ -[default] Side effects of treatment? @ -[No] Exacerbation, Progression, or Severe Exacerbation? @ -[No] Poses a threat to life or bodily function? How? (Chest pain, USA, CT, pneumonia, PE, COPD, DKA, ARF, appy, cholecystitis, CVA, Diverticulitis, Homicidal, Suici fouzia, threat to staff... and all critical care pts) @ -[No] - Lab Data Result diagrams: 09/26/24 17:10 09/26/24 17:10 Lab Results 09/26/24 09/26/24 09/26/24 Range/Units 17:10 17:10 17:10 WBC 7.7 (3.8-10.6) k/uL RBC 3.61 L (4.30-5.90) m/uL Hgb 11.1 L (13.0-17.5) gm/dL Hct 33.8 L (39.0-53.0) % MCV 93.6 (80.0-100.0) fL MCH 30.8 (25.0-35.0) pg MCHC 32.9 (31.0-37.0) g/dL RDW 12.4 (11.5-15.5) % Plt Count 712 H (150-450) k/uL MPV 7.0 Neutrophils % 57 % Lymphocytes % 24 % Monocytes % 8 % Eosinophils % 7 % Basophils % 1 % Neutrophils # 4.4 (1.3-7.7) k/uL Lymphocytes # 1.8 (1.0-4.8) k/uL Monocytes # 0.6 (0-1.0) k/uL Eosinophils # 0.5 (0-0.7) k/uL Basophils # 0.1 (0-0.2) k/uL PT 10.4 (10.0-12.5) sec INR 0.9 (<1.2) APTT 27.9 (22.0-30.0) sec Sodium 135 L (137-145) mmol/L Potassium 4.0 (3.5-5.1) mmol/L Chloride 103 (98-107) mmol/L Carbon Dioxide 23 (22-30) mmol/L Anion Gap 9 mmol/L BUN 13 (9-20) mg/dL Creatinine 0.91 (0.66-1.25) mg/dL Est GFR (CKD-EPI)AfAm >90 (>60 ml/min/1.73 sqM) Est GFR (CKD-EPI)NonAf >90 (>60 ml/min/1.73 sqM) Glucose 100 H (74-99) mg/dL Calcium 9.6 (8.4-10.2) mg/dL Total Bilirubin 0.5 (0.2-1.3) mg/dL AST 25 (17-59) U/L ALT 23 (4-49) U/L Alkaline Phosphatase 107 (38-126) U/L Total Protein 7.3 (6.3-8.2) g/dL Albumin 4.2 (3.5-5.0) g/dL Blood Type Blood Type Recheck Bld Type Recheck Status Antibody Screen Spec Expiration Date 09/26/24 Range/Units 17:14 WBC (3.8-10.6) k/uL RBC (4.30-5.90) m/uL Hgb (13.0-17.5) gm/dL Hct (39.0-53.0) % MCV (80.0-100.0) fL MCH (25.0-35.0) pg MCHC (31.0-37.0) g/dL RDW (11.5-15.5) % Plt Count (150-450) k/uL MPV Neutrophils % % Lymphocytes % % Monocytes % % Eosinophils % % Basophils % % Neutrophils # (1.3-7.7) k/uL Lymphocytes # (1.0-4.8) k/uL Monocytes # (0-1.0) k/uL Eosinophils # (0-0.7) k/uL Basophils # (0-0.2) k/uL PT (10.0-12.5) sec INR (<1.2) APTT (22.0-30.0) sec Sodium (137-145) mmol/L Potassium (3.5-5.1) mmol/L Chloride (98-107) mmol/L Carbon Dioxide (22-30) mmol/L Anion Gap mmol/L BUN (9-20) mg/dL Creatinine (0.66-1.25) mg/dL Est GFR (CKD-EPI)AfAm (>60 ml/min/1.73 sqM) Est GFR (CKD-EPI)NonAf (>60 ml/min/1.73 sqM) Glucose (74-99) mg/dL Calcium (8.4-10.2) mg/dL Total Bilirubin (0.2-1.3) mg/dL AST (17-59) U/L ALT (4-49) U/L Alkaline Phosphatase (38-126) U/L Total Protein (6.3-8.2) g/dL Albumin (3.5-5.0) g/dL Blood Type O Positive Blood Type Recheck O Pos Bld Type Recheck Status No Antibody Screen NEGATIVE Spec Expiration Date 09/29/20242313 Disposition Clinical Impression: Right leg weakness Disposition: ADMITTED IP TO THIS [facility] Condition: Serious Is patient prescribed a controlled substance at d/c from ED?: No Time of Disposition: 18:11 Decision to Admit Reason: Admit from EC Decision Date: 09/26/24 Decision Time: 18:10
[2024-09-26] MEDS ORDERED: MIDAZOLAM 2 MG/2 ML VIAL ONE (18:12)
[2024-09-26] MEDS ORDERED: KETAMINE HCL IN 0.9 % NACL 50 MG/5 ML SYRINGE ONE (18:12)
[2024-09-26] MEDS ORDERED: TRANEXAMIC 1,000 MG/100ML-NACL PREMIX BAG ONE (18:12)
[2024-09-26] MEDS ORDERED: NEOSTIGMINE 1 MG/ML 10 ML VIAL ONE (18:12)
[2024-09-26] MEDS ORDERED: ROCURONIUM 10 MG/ML (5 ML VIAL) IV ONE (18:12)
[2024-09-26] MEDS ORDERED: SUCCINYLCHOLINE CHLORIDE 200 MG/10 ML VIAL IV ONE (18:12)
[2024-09-26] MEDS ORDERED: fentaNYL (PF) 50 MCG/ML 2 ML AMP ONE (18:12)
[2024-09-26] MEDS ORDERED: PHENYLEPHRINE 10 MG/ML VIAL ONE (18:12)
[2024-09-26] MEDS ORDERED: LIDOCAINE 1% INJ 10MG/ML (20 ML MDV) ONE (18:12)
[2024-09-26] MEDS ORDERED: ONDANSETRON 4 MG/2 ML VIAL ONE (18:12)
[2024-09-26] MEDS ORDERED: DEXAMETHASONE SOD PHOSPHATE 4 MG/ML 1 ML VIAL ONE (18:12)
[2024-09-26] MEDS ORDERED: PROPOFOL 10 MG/ML 20 ML VIAL IV ONE (18:12)
[2024-09-26] MEDS ORDERED: GLYCOPYRROLATE 0.2 MG/ML 2 ML VIAL ONE (18:12)
[2024-09-26] MEDS ORDERED: NALOXONE 0.4 MG/ML 1 ML VIAL IV PRN (18:13)
[2024-09-26] MEDS: LACTATED RINGERS 1,000 ML IV ONE ×2 (18:17→19:22)
[2024-09-26] MEDS: SODIUM CHLORIDE 0.9% 50 ML with ceFAZolin 2,000 MG IV ONE (18:17)
[2024-09-26] MEDS: ceFAZolin 3,000 MG in SODIUM CHLORIDE 0.9% IRRIGATIO 3,000 ML IRRIGATION ONE (18:55)
[2024-09-26] MEDS: GENTAMICIN 80 MG in SODIUM CHLORIDE 0.9% IRRIGATIO 3,000 ML IRRIGATION ONE (18:55)
[2024-09-26] MEDS: VANCOMYCIN 1,000 MG VIAL MISCELLANE ONE (19:16)
[2024-09-26] MEDS: LIDOCAINE 2%-EPI 1:100,000 20 ML VIAL SQ ONE (19:45)
[2024-09-26] MEDS: MEPERIDINE 50 MG/ML SYRINGE IVP STA (20:07)
--- NOTE | 2024-09-26 20:23 | P.OP ---
Date of Procedure: 09/26/24 Preoperative Diagnosis: 1. POSTOPERATIVE FLUID COLLECTION, PRESUMED SEROMA, COMPRESSIVE 2. THORACIC MYELOPATHY, PROGRESSIVE, ACUTE ONSET 3. THORACIC BACK PAIN 4. S/P THORACOLUMBAR DECOMPRESSION AND FUSION 5. COMPLEX MEDICAL PATIENT Postoperative Diagnosis: 1. POSTOPERATIVE FLUID COLLECTION, PRESUMED SEROMA, COMPRESSIVE 2. THORACIC MYELOPATHY, PROGRESSIVE, ACUTE ONSET 3. THORACIC BACK PAIN 4. S/P THORACOLUMBAR DECOMPRESSION AND FUSION 5. COMPLEX MEDICAL PATIENT Procedure(s) Performed: 1. IRRIGATION AND DEBRIDEMENT SKIN, SOFT TISSUE, MUSCLE AND BONE WITH EVACUATION OF SEROMA THORACOLUMBAR SPINE USING THE FOLLOWING [id number] CM: -SKIN KNIFE TO FRESHEN SKIN EDGES -CURETTE TO SCRAPE TISSUE, FRESHEN AND DEBRIDE -RONGURE TO REMOVE TISSUES AND CREATE HEALING WOUND BED 2. EXPLORATION OF FUSION T11-12 3. REVISION POSTEROLATERAL FUSION T11-12 Implants: DBM Anesthesia: GETA Surgeon: Brandon Alcantara Estimated Blood Loss (ml): 200 IV fluids (ml): 1,500 Urine output (ml): 0 Pathology: none sent Condition: stable Disposition: PACU Indications for Procedure: Spine Surgery Clinical and Risk Review Alex Fatima is a 58-year-old male presenting for evaluation of inability to ambulate weakness in lower extremities pain in the thoracic spine status post decompression fusion thoracolumbar spine 2 weeks prior. It was my pleasure to have seen and examined Alex. In our visit today we have had a chance to go over subjective complaints, physical examination findings and treatments including the natural course history without intervention and various interventional options. The patients imaging demonstrates postoperative seroma and fluid collection causing compression of the thoracolumbar region in the wound bed. On physical exam, Alex demonstrates thoracic myelopathy weakness in the lower extremity right lower extremity weakness with progressive neurologic change. I have explained to the patient that as their condition progresses it will cause further neurological deficits and eventual paralysis. Based on the patients imaging, physical exam, and the rapid progression and disabling nature of their symptoms, at this time I recommend surgery in the form or a: Incision and drainage with irrigation debridement thoracolumbar spine. I discussed the risk and benefits of this procedure at length with Alex. The patient and agreed to considered pursuing the procedure abovementioned. Prior to surgery, she should follow up with her PCP (Cardio, ID, IM etc) for clearance. Questions were invited and answered, and the patient wishes to proceed as outlined below. Currently, I am recommendin. Irrigation and debridement thoracolumbar spine 2. Follow up with PCP for surgical clearance 3. Review of surgical risks and benefits as well as an educational packet on the proposed surgical procedure. Risks: All surgical procedures come with inherent risks, including those related to positioning, anesthesia, intraoperative findings, and postoperative complic ations. It is important to understand that surgery does not come with any guarantee of a successful outcome as complications and adverse events are always possible. The patient was given a handout in office today discussing the surgical procedure and risks associated with the intervention, both of which were discussed with the patient. These risks include but are not limited to the following: Experiencing same, different or even worse symptoms in back, neck, arms, or legs compared to before surgery. Requiring further surgery or other forms of treatment presently or at some time in the future at same or other levels of the intended spine surgery. On an extreme but fortunately relatively rare basis severe complication such as blindness, stroke, heart attack, temporary and/or permanent nerve injury, paralysis, coma, or may occur, sometimes without known explanation. Surgical complications may include but are not limited to risk of infection, fluid accumulation in the surgical dissection site, including a seroma or hematoma, that requires additional surgery, wound drainage, bleeding, new numbness or weakness, vision changes/loss, spinal fluid leakage, non-healing and/or infected incision, headaches, difficulty or inability to swallow, hoarseness, hemopneumothorax, pneumothorax, impotence, retrograde ejaculation, vaginal dryness; injury to nerves, spinal cord, blood vessels, lymphatics or other vital organs (i.e., bowel injury, injury to the great vessels); heterotopic bone formation; complications related to the hardware such as screws, rods, cages including misplaced hardware, device failure, instrumentation at the wrong spine level, hardware fracture/breakage, or hardware loosening; vertebral failure of the spinal column above or below the newly placed hardware; retained surgical instrumentations or devices and the need for further surgery. Medical risks of the planned spine surgery include but are not limited to generalized Infections to the whole body or local areas outside of the surgical site (sepsis), heart attack, bleeding, anaphylaxis, meningitis, seizure, epilepsy, hearing loss, burn pope, laceration of the head or other areas of the body, bruising, hypersensitivity of the skin, bladder over distension; allergic reaction; shoulder injury related to positioning; fat, blood and air clots to other areas of the body like heart, lungs, brain; failure of internal organs such as lungs, kidneys, liver and excessive bleeding. If blood transfusions are necessary, note that transfusions may cause intolerance reactions such as anaphylaxis or other complex reactions. Despite best efforts, the results of spine surgery might not heal in terms of bone, soft tissues such as skin, fascia, ligaments, and joints. Additionally, in order to achieve best possible results, spine surgery may be carried out beyond the initially planned levels and involve decompression, fusion including insertion of hardware at levels other than the original intended area of surgical interest change some portions of the procedure in order to ensure the best possible outcomes. With spine surgery and spinal fusion, there are different off label uses of instrumentation (devices, implants and hardware) as well as biological substances (bone morphogenic proteins, demineralized bone matrix) as well as using extra bone from allograft sources (i.e. cadaver bone) or autograft (iliac crest bone, ribs, or the spine itself). The patient has been given information about these practices and their inherent risks and benefits. The patient has had a chance to review all the listed information, has been given print outs detailing this information, and has had all his/her questions answered to their satisfaction. It was my pleasure to have seen and examined Alex. In our visit today we have had a chance to go over my understanding of our patient's current condition, the natural course history without intervention and various interventional options. Questions were invited and answered, and the patient wishes to proceed as outlined above. I have seen and examined the patient for 25 minutes and we have spent more than 50% of the time in repeat and detailed counseling about the patient's condition, its natural course history with out and as much as can be predicted with surgery and re-review of various surgical treatment options. In conclusion, Alex and his requested we proceed with the above suggested surgery and are willing to accept risks and limitations of the suggested surgery as nature of the disease process and our best attempts at treatment for the condition. Thank you again for allowing us to be part of your patient's care. Please don't hesitate to contact me if you have any further questions. Signed and authenticated by: Brandon Bell [facility] [address] [place] [address] Description of Procedure: The patient was seen and examined in the preoperative area. All preoperative protocols were followed. Informed consent was obtained risks and benefits of the procedure were discussed at length. Risks including bleeding infection damage to the surrounding tissue and risk of reoperation were discussed with the patient. Risk of anesthesia up to and including was a discussed with the patient. These are outlined in the risk review. They were willing to accept these risks and all of the risks of surgery. The patient was given a weight-based dose of antibiotics in the form of Ancef 2 g. The patient was seen and evaluated by the anesthesia team who deemed them fit for surgery. The site was marked, the patient was willing to proceed with the procedure. The patient was transferred to the operative suite by the Department of anesthesia. They were then drifted off to sleep by the department anesthesia and GETA was performed. The patient tolerated this well. . Once confirmation of lines and ventilation the patient was transferred to a prone Cheo table very carefully. All bony prominences including wrists, elbows, axilla, chest, hips, and thighs, and feet were padded very well. Special attention was paid to the genitalia and these were padded accordingly. SCDs were placed on bilateral lower extremities and were connected. Arms were well padded and placed on arm boards up and out in the 90/90 position. Once in position, again we confirmed good ventilation capabilities and that lines were running appropriately. The patient's thoracolumbar spine was then exposed. 1010s were placed outlining the incision site. Standard alcohol was used to clean the incision site and allowed to dry. C-arm was used to biomark the patient and confirm level for incision which was marked with a skin marker. Operative briefing was performed with all teams and everyone in agreement to proceed. The patient was then prepped and draped in a normal sterile fashion. Timeout was then performed and all parties were in agreement with the procedure to be performed. Midline skin incision was made over the previously Baio marked area and dissection taken down to the fascia which was identified sutures were removed from the subcutaneous tissue and this was debrided. We then opened the fascia of after which a large collection of under pressure seromatous fluid was evacuated from this area. We then open the fascia completely placed retractors and investigated the area. There is a large seromatous fluid and exudative fluid no purulence noted. This was a straw-colored serous fluid. There is good healing tissue down in the wound bed as well as over the dura. There is no injury to the dura apparent. Curette was then used to scrape the bone and remove tissue for healing wound bed as well as remove any previous graft or loose necrotic tissue. Rongeur was used to do the same of the bone and the soft tissue followed by up-biting curettes down to investigate the wound bed the dura and the exiting roots. There was no injury to any area in this region and there was no evidence of CSF leak the dura had good buoyancy. There was a decent amount of bleeding still within the wound bed and the patient seemed to exude blood fairly easily. We then irrigated the area thoroughly while debriding with 3 L of gentamicin irrigation followed by 3 L of and Ancef irrigation solution. We then irrigated with Irrisept solution x 2. We irrigated then with a Betadine solution times one 1 L followed by 6 L of normal sterile saline although while debriding the area of any loose or necrotic tissue. The posterior lateral gutters and fusion was explored there was good placement of hardware and there was no evidence of hardware loosening or failure. There is no evidence of fracture. We redecorticated posterior lateral gutters and placed DBM as well as autograft in this area. Surgicel was placed over the dura once again as well as Surgicel powder 2 g of vancomycin was placed deep within the wound. A deep drain was placed and secured to the skin. We then proceeded in layered closure. Deep fascia was closed with #1 PDS in a simple fashion deep subcu tissues closed with 0 Vicryl superficial subcu tissue closed with 2-0 Vicryl the skin edges were freshened with a 10 blade and the skin was then closed with skin vishnu. Wound edges approximated very well. The patient was transferred back to their hospital bed atraumatically. Drain continued to hold suction and were in good position. Patient was then awakened and extubated by the department of anesthesia having tolerated the procedure very well with no complications. They were transferred to the postoperative care unit in stable condition.
--- NOTE | 2024-09-26 20:24 | P.PN ---
Progress Note - Text Progress Note Date: 09/26/24 Postop: Patient seen and examined they are doing well. Their pain is under control at this time. He is moving his lower extremities with good strength at this time. He has good dorsiflexion plantarflexion EHL FHL with at least 3 out of 5 strength and this is increased to nearly 4- out of 5 strength in the right lower extremity. Not cooperating for hip flexion at this time. He is laying on his side and he got there on his own. They are moving all 4 extremities without any issues. Vital signs are stable. They are currently recovering and will be transferred to the floor once deemed stable by the PACU team and anesthesiologist. No Other issues at this time they deny fever chills shortness of breath or chest pain. [Medical management pending] [Continue with intravenous fluids, pain medication, muscle relaxers, home medication] [Soft diet to start to advance as tolerated] We will evaluate the patient in the morning.
[2024-09-26] MEDS ORDERED: HYDROmorphone 1 MG/ML 1 ML SYRINGE IVP PRN (20:25)
[2024-09-26] MEDS ORDERED: DEXAMETHASONE SOD PHOSPHATE 4 MG/ML 1 ML VIAL IV PRN (20:29)
[2024-09-26] MEDS: droPERidol 5 MG/2 ML VIAL IVP ONE (20:33)
[2024-09-26] MEDS: GABAPENTIN 300 MG CAP PO SCH (21:21)
[2024-09-26] MEDS: ACETAMINOPHEN IV (For NPO) 1,000 MG in EMPTY BAG 1 BAG IVPB SCH (21:47)
[2024-09-26] MEDS: 0.9% NACL WITH KCL 20 MEQ/L 1,000 ML IV SCH (21:48)
[2024-09-26] MEDS: HYDROmorphone 0.5 MG/0.5 ML SYRINGE IVP PRN (23:24)
[2024-09-27] MEDS: TRANEXAMIC ACID 1,000 MG in SODIUM CHLORIDE 0.9% 100 ML IVPB ONE ×2 (00:24→00:30)
[2024-09-27] MEDS: DEXAMETHASONE SOD PHOSPHATE 20 MG in DEXTROSE 5% IN WATER 50 ML IV STA (00:30)
[2024-09-27 00:50] LABS: Magnesium 1.7 mg/dL (1.6-2.3); Phosphorus 3.4 mg/dL (2.5-4.5)
[2024-09-27 04:18] LABS: African American GFR (CKD) >90 (>60 ml/min/1.73 sqM); Anion Gap 8 mmol/L; Blood Urea Nitrogen 12 mg/dL (9-20); Calcium 9.1 mg/dL (8.4-10.2); Carbon Dioxide 20 mmol/L (22-30); Chloride 105 mmol/L (98-107); Glucose 167 mg/dL (74-99); Non-African American GFR(CKD) >90 (>60 ml/min/1.73 sqM); Sodium 133 mmol/L (137-145)
[2024-09-27 04:44] LABS: Basophils % (A) 0 %; Eosinophils % (A) 0 %; HCT 29.1 % (39.0-53.0); HGB 9.8 gm/dL (13.0-17.5); Lymphocytes # (A) 0.4 k/uL (1.0-4.8); Lymphocytes % (A) 7 %; MCH 31.4 pg (25.0-35.0); MCHC 33.7 g/dL (31.0-37.0); Mean Platelet Volume 7.9; Monocytes # (A) 0.1 k/uL (0-1.0); Monocytes % (A) 1 %; Neutrophils # (A) 5.8 k/uL (1.3-7.7); Neutrophils % (A) 91 %; Platelet Count 651 k/uL (150-450); RBC 3.13 m/uL (4.30-5.90); RDW 12.7 % (11.5-15.5); WBC 6.3 k/uL (3.8-10.6)
[2024-09-27] MEDS: ASCORBIC ACID 500 MG TAB PO SCH (08:13)
[2024-09-27] MEDS: CHOLECALCIFEROL 125 MCG (5000 IU) TABLET PO SCH (08:13)
[2024-09-27] MEDS: PANTOPRAZOLE 40 MG TABLET PO SCH (08:13)
[2024-09-27] MEDS: THIAMINE 100 MG TAB PO SCH (08:14)
[2024-09-27] MEDS: FOLIC ACID 1 MG TAB PO SCH (08:14)
[2024-09-27] MEDS: lisinopriL 10 MG TAB PO SCH (08:14)
[2024-09-27] MEDS: MULTIVITAMINS, THERA 1 EACH TAB PO SCH (08:17)
--- NOTE | 2024-09-27 08:39 | P.PN ---
Subjective Progress Note Date: 09/27/24 Principal diagnosis: Thoracic Myelopathy Unsteady gait Right lower extremity weakness Patient seen and examined this morning. Patient is sitting at bedside eating breakfast. Patient is tolerating diet well. Patient currently states that his pain is 25% improved from the first surgery. Patient demonstrated his ability to stand with assist from the IV pole and ambulate in the room. Patient still demonstrates a myelopathic gait, although it has improved from his presentation in the office yesterday on 09/26/2024. Patient is strongly requesting to go home today. Discussed this option with Dr. Alcantara, it is pertinent for patient to remain inpatient at this time to continue to monitor his gait and drainage output. Encouraged use of CIWA scale to assist patient with withdrawal symptoms. Informed patient that he will be working with physical therapy today. Patient does have a 4 wheeled rolling walker at home. Continue to encourage increased activity and use of incentive spirometer 10 times per hour while awake. No acute concerns. Objective - Vital Signs Vital signs: Vital Signs Temp 97.8 F 09/27/24 06:25 Pulse 82 09/27/24 06:25 Resp 18 09/27/24 06:25 BP 127/81 09/27/24 06:25 Pulse Ox 95 09/27/24 06:25 FiO2 Intake & Output 09/26/24 09/27/24 09/27/24 18:59 06:59 18:59 Intake Total 953 2990 Output Total 825 Balance 953 2165 Weight 81.647 kg Intake: IV 953 800 Oral 2190 Output: Drainage 0 Back 0 Urine 675 Estimated Blood Loss 150 Other: Voiding Method Urinal # Voids 1 - Exam Physical Examination General: The patient is awake and alert, in no acute distress Skin: Skin is warm and dry with no obvious rashes or lesions. Surgical incision to the thoracolumbar spine, dressing is clean dry and intact with Hemovac present with no recorded output. There is sanguineous drainage present within the tubing. Neck: The neck is supple, there is no tenderness and ROM intact. Cardiovascular: There is a regular rate and rhythm. Respiratory: Respirations are non-labored.. Gastrointestinal: Soft, non-distended, non-tender abdomen. Back: There is no tenderness to palpation in the midline, paralumbar, parathoracic or buttocks region. There is no obvious deformity. Musculoskeletal: ROM limited secondary to pain and stiffness from surgical procedure. Right: shoulder abduction 5/5, elbow flexors 5/5, wrist dorsiflexors 5/5. finger abductor 5/5, pants cutter 5/5, hip flexor 4-/5, knee flexor 4-/5, ankle dorsiflexor 4/5, ankle plantarflexion 4/5 and extensor hallucis 4/5. Left: shoulder abduction 5/5, elbow flexors 5/5, wrist dorsiflexors 5/5. finger abductor 5/5, pants cutter 5/5, hip flexor 4/5, knee flexor 4/5, ankle dorsiflexor 4/5, ankle plantarflexion 4/5 and extensor hallucis 4/5. Neurological: CN 2-12 intact. There are no obvious motor or sensory deficits. Patient is ambulatory with an unsteady and myelopathic gait. Sensory exam to light touch intact C5-T1 and intact from L2-S1. Reflexes 2/4 in bilateral upper and lower extremities. Negative Hoffmans, babinski, and clonus signs. Psychiatric: Cooperative, appropriate mood & affect, normal judgment. - Labs CBC & Chem 7: 09/27/24 03:12 09/27/24 03:12 Labs: Abnormal Lab Results - Last 24 Hours (Table) 09/26/24 09/26/24 09/27/24 Range/Units 17:10 17:10 03:12 RBC 3.61 L 3.13 L (4.30-5.90) m/uL Hgb 11.1 L 9.8 L (13.0-17.5) gm/dL Hct 33.8 L 29.1 L (39.0-53.0) % Plt Count 712 H 651 H (150-450) k/uL Lymphocytes # 0.4 L (1.0-4.8) k/uL Sodium 135 L (137-145) mmol/L Carbon Dioxide (22-30) mmol/L Glucose 100 H (74-99) mg/dL 09/27/24 Range/Units 03:12 RBC (4.30-5.90) m/uL Hgb (13.0-17.5) gm/dL Hct (39.0-53.0) % Plt Count (150-450) k/uL Lymphocytes # (1.0-4.8) k/uL Sodium 133 L (137-145) mmol/L Carbon Dioxide 20 L (22-30) mmol/L Glucose 167 H (74-99) mg/dL Assessment and Plan Assessment: Post Op Day 1: Irrigation and debridement thoracolumbar spine Plan: -Appreciate configuration management consultant and team management. -Activity: Ambulate QID, OOB all meals, up and about, limit lifting bending twisting to less than 5 lbs. Use walker or cane if needed for stability. -Daily PT/OT, increase ambulation strength and balance. -Brace when up and about, not needed in bed or chair. -Pain control: Adequate at this time -Meds: reviewed -GI ppx: senna, Miralax -DVT PPX: Aspirin 81mg daily -Hygiene: Maintain incision clean and dry. May change dressing as needed, please document in notes if performed. Meticulous cleaning after BMs away from the incision site -Drains: Maintain for now. Continue to monitor and record output q shift. -Encourage IS 10x/hr -Dispo: Anticipate discharge home with homecare within the next 48hrs.. *I reviewed and discussed this case with my attending Dr. Alcantara, whom has reviewed this chart and films and is in agreement with assessment and plan of care as outlined above. I have personally seen and examined the patient, performed the documentation and the assessment and plan as written. Number of minutes spent on the visit: 20m.
[2024-09-27] MEDS: ONDANSETRON 4 MG TAB PO PRN (12:08)
--- NOTE | 2024-09-27 12:23 | P.CONS ---
History of Present Illness - Reason for Consult Consult date: 09/27/24 Medical Management Requesting physician: Brandon Alcantara - History of Present Illness History of Presenting Illness: Patient is a very pleasant 58-year-old male with a past medical history of hypertension, GERD, peripheral neuropathies, nicotine dependence, and marijuana use. He is currently admitted under orthospine surgery team status post drainage of postoperative seroma, irrigation and debridement with evacuation of seroma, exploration of fusion T11-T12 and revision of posterior lateral fusion T11-T12. Surgical procedure was completed by Dr. Alcantara on 09/26/2024. We were consulted for medical management throughout hospitalization. Patient seen and fully evaluated in room 481. Patient resting comfortably right lateral recumbent in bed. He reports mild to moderate postoperative pain and back with peripheral neuropathies in bilateral legs but states pain and neuropathies have improved from presurgical pain and neuropathy as he was e xperiencing. He denies having any postoperative nausea or vomiting, chest pain, palpitations, shortness of breath, or any other complaints at this time. He reports urinating without any difficulties and tolerating oral intake. Review of systems: Pertinent positives and negatives as discussed in HPI, a complete review of systems was performed and all other systems are negative. Physical exam: Vital signs reviewed and stable. General: Nontoxic, no distress and appears stated age. Derm: Skin warm and dry, normal coloration for ethnicity. Dressings in place to mid thoracic and lumbar spine and are currently clean, dry, and intact. Head: Atraumatic, normocephalic and symmetric. Eyes: EOM's intact, no lid lag, and anicteric sclera Mouth: no lip lesions, mucus membranes moist Cardiovascular: regular rate and rhythm with normal S1S2, no murmur, positive posterior tibial pulses bilaterally, and cap refill < 2 seconds. Lungs: Respirations even, regular, and unlabored on room air. Lungs CTA bilaterally, no rhonchi, no rales, no wheezing, and no accessory muscle usage. Abdominal: soft, nontender to palpation, no guarding, no appreciable organomegaly Ext: ROM intact. No gross muscle atrophy, no edema, no contractures Neuro: Speech clear, face symmetrical and CN II-XII grossly intact with no noted focal neuro deficits Psych: Alert and oriented to person, place, time, and situation. Appropriate and pleasant affect. Assessment and Plan of Care: Status post irrigation and debridement with evacuation of seroma, exploration of fusion T11-T12 and revision of posterior lateral fusion T11-T12. -Management per primary admitting orthospine surgery team including DVT prophylaxis, pain management, wound/dressing management, PT/OT, Acute postoperative blood loss anemia Thrombocytosis -Acute postoperative blood loss anemia-stable and expected finding. Preoperative hemoglobin 11.1 with postoperative hemoglobin of 9.8. Thrombocytosis is likely reactive and improving from 712 down to 651 this morning. Hyponatremia -Sodium 133. Will start patient on gentle IV fluid hydration with 0.9% normal saline at 100 cc/h. -Monitor for improvement/resolution with repeat a.m. labs. Additional orders to be placed based upon these results. Hypertension -Continue daily medication regimen with lisinopril 10 mg daily. Monitor vital signs every 8 hours. GERD -Continue daily medication regimen with Protonix 40 mg daily. Peripheral neuropathy -Continue gabapentin 300 mg 3 times daily. Data and imaging reviewed: -Morning labs reviewed. CBC showing acute blood loss anemia with hemoglobin of 9.8 and preoperative hemoglobin of 11.1. This is a stable and expected finding. Thrombocytopenia with platelet count of 651 improving from previous 712. BMP showing mild hyponatremia with sodium of 133 and hypocarbia with bicarb of 20. Blood glucose 167. Magnesium 1.8. -Vital signs reviewed. Blood pressure 115/74, heart rate 89, respiratory rate 16, temp 98.0 F, and SpO2 of 96% on room air. Thank you for allowing us to participate in the care of this pleasant patient. Do not hesitate to contact us with questions. Someone can be reached from the [facility] hospitalist group all hours of the day at [phone] or via [employer]. Patient was seen independently by Nurse Practitioner. This document was prepared using [employer] dictation software. Please allow for errors in cnc machinist 2nd shift while rare they do occur. Capo Cooper NP rendered care for this patient independently, reviewed the findings and plan as documented in the note above and agree with plan. I did not physically speak with or examine the patient on this date. Past Medical History Past Medical History: Hypertension History of Any Multi-Drug Resistant Organisms: None Reported Past Surgical History: Back Surgery, Orthopedic Surgery Additional Past Surgical History / Comment(s): LEFT SHOULDER SCOPE, CERVICAL AND LUMBAR BACK SURGERY. Past Anesthesia/Blood Transfusion Reactions: No Reported Reaction Additional Past Anesthesia/Blood Transfusion Reaction / Comm: NEVER HAD A BLOOD TRANSFUSION Past Psychological History: No Psychological Hx Reported Smoking Status: Vaper Past Alcohol Use History: Occasional Past Drug Use History: Marijuana Medications and Allergies Home Medications Medication Instructions Recorded Confirmed Type Celecoxib 200 mg PO DAILY 09/10/24 09/26/24 History Gabapentin 300 mg PO TID 09/10/24 09/26/24 History Pantoprazole [Protonix] 40 mg PO DAILY 09/10/24 09/26/24 History lisinopriL [Zestril] 10 mg PO DAILY 09/10/24 09/26/24 History methocarbamoL 500 mg PO TID PRN 09/10/24 09/26/24 History ondansetron HCL [Zofran] 8 mg PO TID PRN 09/26/24 09/26/24 History oxyCODONE HCL/ACETAMINOPHEN 1 tab PO Q6HR PRN 09/26/24 09/26/24 History [Percocet 10-325 mg] Allergies Allergy/AdvReac Type Severity Reaction Status Date / Time Gadolinium-Containing AdvReac Nausea Verified 09/26/24 17:56 Contrast Medi Physical Exam Vitals: Vital Signs Temp Pulse Pulse Resp BP BP Pulse Ox 09/27/24 06:25 97.8 F 82 18 127/81 95 09/27/24 03:42 97.7 F 67 18 130/79 98 09/26/24 22:50 89 97/61 95 09/26/24 22:35 84 102/61 95 09/26/24 22:21 82 99/59 94 L 09/26/24 22:06 81 93/57 94 L 09/26/24 21:51 83 101/61 93 L 09/26/24 21:40 18 09/26/24 21:36 87 96/58 96 09/26/24 21:21 85 106/63 97 09/26/24 21:05 86 106/63 95 09/26/24 20:46 82 16 108/52 93 L 09/26/24 20:31 86 16 121/59 97 09/26/24 20:16 90 20 124/58 96 09/26/24 20:01 97.5 F L 125 H 20 136/61 96 09/26/24 18:30 74 16 129/80 09/26/24 17:07 74 16 129/80 100 09/26/24 16:52 98.4 F 74 16 129/80 100 Intake and Output 09/26/24 09/27/24 09/27/24 22:59 06:59 14:59 Intake Total 2293 1650 Output Total 150 675 Balance 2143 975 Intake: IV 1753 Oral 540 1650 Output: Drainage 0 Back 0 Urine 675 Estimated Blood Loss 150 Other: Voiding Method Urinal # Voids 1 Weight 81.647 kg Results CBC & Chem 7: 09/27/24 03:12 09/27/24 03:12 Labs: Abnormal Lab Results - Last 24 Hours (Table) 09/26/24 09/26/24 09/27/24 Range/Units 17:10 17:10 03:12 RBC 3.61 L 3.13 L (4.30-5.90) m/uL Hgb 11.1 L 9.8 L (13.0-17.5) gm/dL Hct 33.8 L 29.1 L (39.0-53.0) % Plt Count 712 H 651 H (150-450) k/uL Lymphocytes # 0.4 L (1.0-4.8) k/uL Sodium 135 L (137-145) mmol/L Carbon Dioxide (22-30) mmol/L Glucose 100 H (74-99) mg/dL 09/27/24 Range/Units 03:12 RBC (4.30-5.90) m/uL Hgb (13.0-17.5) gm/dL Hct (39.0-53.0) % Plt Count (150-450) k/uL Lymphocytes # (1.0-4.8) k/uL Sodium 133 L (137-145) mmol/L Carbon Dioxide 20 L (22-30) mmol/L Glucose 167 H (74-99) mg/dL
[2024-09-27] MEDS: diazePAM 5 MG TAB PO PRN (13:15)
[2024-09-27] MEDS: SODIUM CHLORIDE 0.9% 1,000 ML IV SCH (16:39)
[2024-09-28 08:50] LABS: HCT 25.2 % (39.6-50.0); HGB 8.5 g/dL (13.0-17.0); MCH 31.1 pg (27.0-32.0); MCHC 33.7 g/dL (32.0-37.0); MCV 92.3 FL (80.0-97.0); Mean Platelet Volume 9.1 FL (9.5-12.2); NRBC Per 100 WBC 0 X 10*3/uL (0.00-0.01); Platelet Count 525 X 10*3/uL (140-440); RBC 2.73 X 10*6/uL (4.40-5.60); RDW 12.7 % (11.5-14.5)
[2024-09-28 09:02] LABS: ALT 11 U/L (10-49); AST 15 U/L (14-35); Albumin 3.4 g/dL (3.8-4.9); Albumin/Globulin Ratio 1.48 Ratio (1.60-3.17); Alkaline Phosphatase 80 U/L (41-126); BUN/Creat Ratio 14.25 Ratio (12.00-20.00); Blood Urea Nitrogen 11.4 mg/dL (9.0-27.0); Calcium 8.9 mg/dL (8.7-10.3); Carbon Dioxide 22.7 mmol/L (21.6-31.8); Chloride 106 mmol/L (96-109); Globulin 2.3 g/dL (1.6-3.3); Glucose 115 mg/dL (70-110); Magnesium 1.9 mg/dL (1.5-2.4); Potassium 4.3 mmol/L (3.5-5.5); Sodium 139 mmol/L (135-145); Total Bilirubin <0.2 mg/dL (0.3-1.2); Total Protein 5.7 g/dL (6.2-8.2)
[2024-09-28] MEDS: SENNOSIDES-DOCUSATE SODIUM 1 EACH TAB PO PRN (09:39)
[2024-09-28 09:41] VITALS: BP 125/77; PULSE 78; RESP 17; TEMP 98.1
[2024-09-28] MEDS: methocarbamoL 500 MG TAB PO PRN (09:55)
--- NOTE | 2024-09-28 10:45 | P.PN ---
Subjective Progress Note Date: 09/28/24 Principal diagnosis: Thoracic myelopathy, right lower extremity weakness, abnormal fluid collection thoracolumbar spine Patient was examined today at bedside, he is doing quite well at this time. His right lower extremity continues to improve with regards to overall motion and strength. The drain is putting out minimal bloody serosanguineous output at this time. He has been urinating with no issues, he is passing gas. He is been up and ambulating the halls. He is very eager at being discharged home today. Currently has no headaches, lightheadedness, chest pain or shortness of breath Objective - Vital Signs Vital signs: Vital Signs Temp 98.1 F 09/28/24 07:51 Pulse 78 09/28/24 07:51 Resp 17 09/28/24 07:51 BP 125/77 09/28/24 07:51 Pulse Ox 96 09/28/24 07:51 FiO2 Intake & Output 09/27/24 09/28/24 09/28/24 18:59 06:59 18:59 Intake Total 540 Output Total 60 Balance 540 -60 Intake: Oral 540 Output: Drainage 60 Back 60 Other: Voiding Method Toilet Urinal # Voids 3 1 # Bowel Movements 0 - Exam Gen: AOx3, NAD VSS stable at this time Integument: Postop dressing in good position and condition along with Hemovac drain Palpation: Mild tenderness with palpation of the lower thoracic spine ROM: Full range of motion in all major muscle groups of the bilateral lower extremities, no focal deficits appreciated Sensory Exam: Senory exam to light touch is intact C5-T1 Senosry exam to light touch is intact L2-S Motor: 4+/5 strength appreciated in the right lower extremity with hip flexion, knee flexion, knee extension, plantarflexion, dorsiflexion, EHL, FHL 5/5 strength appreciated in the left lower extremity with hip flexion, knee extension, knee flexion, plantarflexion, dorsiflexion, EHL, FHL Reflexes: 2/4 in all UE and LE Negative Cheo's bilaterally Negative clonus bilaterally - Labs CBC & Chem 7: 09/28/24 03:41 09/28/24 03:41 Labs: Abnormal Lab Results - Last 24 Hours (Table) 09/28/24 09/28/24 Range/Units 03:41 03:41 RBC 2.73 L (4.40-5.60) X 10*6/uL Hgb 8.5 L (13.0-17.0) g/dL Hct 25.2 L (39.6-50.0) % Plt Count 525 H (140-440) X 10*3/uL MPV 9.1 L (9.5-12.2) FL Glucose 115 H (70-110) mg/dL Total Bilirubin <0.2 L (0.3-1.2) mg/dL Total Protein 5.7 L (6.2-8.2) g/dL Albumin 3.4 L (3.8-4.9) g/dL Albumin/Globulin Ratio 1.48 L (1.60-3.17) Ratio Assessment and Plan Assessment: Postoperative day #2 status post I&D thoracolumbar spine Thoracic myelopathy, improving Right lower extremity weakness, improving History of recent T11-T12 posterior lateral decompression and fusion History of postoperative fluid/seroma accumulation thoracic or lumbar spine Plan: Pain control, continue with current medications DVT prophylaxis, continue with compression stockings Weight-bear as tolerated with use of walker Will continue to monitor dressing and Hemovac Other medical specialty recommendations appreciated Discharge planning: Will discuss with attending the possibility of patient being discharged home today with or without drain Time with Patient: Less than 30
--- NOTE | 2024-09-28 11:27 | P.PN ---
Subjective Progress Note Date: 09/28/24 Patient seen this morning. He denies any acute complaints. Patient states that his lower extremity strength has improved significantly afterwards. Surgery. 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 -Management per primary admitting orthospine surgery team including DVT prophylaxis, pain management, wound/dressing management -I reviewed patient PT OT note who cleared the patient for discharge home -Patient also states that after surgery his lower extremity weakness improved significantly. Acute postoperative blood loss anemia Thrombocytosis -This morning hemoglobin is 8.5 which has decreased from 9.8. Will defer acute blood loss anemia to primary team -Platelets this morning 525 which is improving. Thrombocytosis likely reactive. Hyponatremia -Sodium this morning is 139. Resolved after fluid Hypertension -Blood pressure is on the low side so I discontinued patient's lisinopril. I instructed patient that when he goes home he should monitor his blood pressure and if systolic blood pressure greater than 140 he should restart it. GERD -Continue daily medication regimen with Protonix 40 mg daily. Peripheral neuropathy -Continue gabapentin 300 mg 3 times daily. Patient stable for discharge from medical standpoint. Will defer acute blood loss anemia to primary team. I have completed patient's discharge medication reconciliation. Objective - Vital Signs Vital signs: Vital Signs Temp 98.1 F 09/28/24 07:51 Pulse 78 09/28/24 07:51 Resp 17 09/28/24 07:51 BP 125/77 09/28/24 07:51 Pulse Ox 96 09/28/24 07:51 FiO2 Intake & Output 09/27/24 09/28/24 09/28/24 18:59 06:59 18:59 Intake Total 540 Output Total 60 Balance 540 -60 Intake: Oral 540 Output: Drainage 60 Back 60 Other: Voiding Method Toilet Urinal # Voids 3 1 # Bowel Movements 0 - Labs CBC & Chem 7: 09/28/24 03:41 09/28/24 03:41 Labs: Abnormal Lab Results - Last 24 Hours (Table) 09/28/24 09/28/24 Range/Units 03:41 03:41 RBC 2.73 L (4.40-5.60) X 10*6/uL Hgb 8.5 L (13.0-17.0) g/dL Hct 25.2 L (39.6-50.0) % Plt Count 525 H (140-440) X 10*3/uL MPV 9.1 L (9.5-12.2) FL Glucose 115 H (70-110) mg/dL Total Bilirubin <0.2 L (0.3-1.2) mg/dL Total Protein 5.7 L (6.2-8.2) g/dL Albumin 3.4 L (3.8-4.9) g/dL Albumin/Globulin Ratio 1.48 L (1.60-3.17) Ratio
--- NOTE | 2024-09-28 14:01 | P.DS ---
Providers Date of admission: 09/26/24 18:24 Expected date of discharge: 09/28/24 Attending physician: Brandon Alcantara DO Consults: 09/26/24 20:25 Consult Physician Routine Consulting Provider: Tenzin Edwards Consult Reason/Comments: medical management Do you want consulting provider notified?: Yes Primary care physician: Mithcel Maya Hospital Course: Date of admission: 09/26/2024 Date of discharge: 09/28/2024 Admission diagnosis: Thoracic myelopathy, abnormal fluid collection thoracolumbar spine, history of recent T11-T12 posterior lateral decompression and fusion Discharge diagnosis: Status post I&D thoracolumbar spine Attending physician: Dr. Alcantara Surgical procedures: Incision and drainage with irrigation and debridement thoracolumbar spine Brief history: Patient is a 58-year-old male with a history of a recent T11-T12 posterior lateral decompression and fusion. Patient was evaluated for his first postop visit on 09/26/[address] Alcantara, patient had developed significantly worsening gait, weakness in the right lower extremity. Patient was emergently sent to the ER for CT scan and likely surgical procedure. It was determined that the patient had a significant fluid collection in the thoracolumbar spine, he underwent an I&D procedure on 09/26/2024. Hospital course: Details of patient's surgery can be found in operative report. Patient tolerated the procedure well and was subsequently transported to orthopedic floor. Patient's orthopeidc and medical care was provided daily. Patient had daily laboratory tests performed for evaluation of overall blood counts. Patient had daily physical therapy to include strengthening range of motion as well as education with walker ambulation. Patient was treated with compression stocking for their postoperative DVT prophylaxis during their inpatient stay. Patient was noted to have a relatively uneventful postoperative course. Patient reported satisfactory pain control with oral pain medications by postoperative day 0. Patient showed satisfactory progress with physical therapy. Patient moved steadily through the program and had no difficulty meeting the goals by postoperative day 2. Given patient's otherwise satisfactory course and having met physical therapy goals, plan is to discharge patient [home] on postoperative day 2. Discharge condition/disposition: Patient will be discharged [home] in stable condition. Discharge medications: Instructions are given on resumption of patient's normal daily medications per primary care recommendation, in addition patient will be prescribed Percocet 10 mg / 325 mg, Duricef 500 mg. Spine Discharge and Recovery Instructions Medications: See medication list All medication refills should be obtained through your primary care doctor or your clinic spine surgeon. Please discuss prescription refills at your follow up appointment. Do not call the hospital for medication refills. Dressing: Leave your dressing in place for a total of 5 days post operatively. Then you may remove your dressing and leave open to air. Keep the area clean and if not able to keep area clean, then cover with sterile gauze and tape. Showering: You may shower 3 days after your procedure allowing soap and water to run over incision. Do not scrub. Do not soak. Blot dry. Follow up: Please confirm a follow up appointment with your surgeon 3 weeks post operatively. Please make an appointment to follow up with your PCP in 1-2 weeks after surgery for evaluation '3 phase, 3-week plan' POST OP WEEKS 1-3 1. Lifting/carrying/pushing/pulling limited to less than 5 pounds. 2. Do not sit for longer than 15 minutes at one time. Get up and walk around. Prolonged sitting is NOT advised. If you lay down, see if you can tolerate laying down on you front (belly side) 3. Walk for periods of 15 minutes = 1 mile but no longer; do it multiple times times each day. 4. Ice your low back after activity. POST OP WEEKS 3-6 1. Lifting limited to less than 20 pounds. 2. Do not sit for longer than 30 minutes at a time. Frequently change positions. Use a sit-to stand workstation or take frequent breaks from sitting if you have returned to work. 3. Walk for 30 minutes each day. If possible, do these three or more times a day POST OP WEEKS 6+ At your 6-week appointment we will give you a physical therapy referral to focus on a core stabilization and strengthening program. You should also work on leg & buttock strengthening, hamstring & quadriceps stretching, and continue a low impact aerobic activity program such as swimming, walking, or riding a stationary bicycle. During the initial 6 weeks after your surgery, you are at the highest risk of re-injuring your spine. You should generally avoid BLT's (bending, lifting and twisting combination motions) and follow the above guidelines to reduce the chance of reinjury. You can anticipate post op appointments in our office at approximately 3 weeks and 6 weeks after your surgery. INCISION CARE: If your incision is not draining you do NOT need to cover it with a dressing. Keep your incision clean, dry and intact. In most cases, we apply skin glue, vishnu or sutures to the incision at the time of surgery. This will be like a crust or have the appearance of a scab and will fall off in time on its own. The stitches or vishnu need to be removed at 3 weeks post op appointment. You may begin to shower 3 days after surgery (this allows the glue to santana well). However, please avoid scrubbing the incision site or peeling off any of the skin glue. This will ensure optimal healing of your incision. Also, during this time avoid soaking the incision area in water - this includes swimming pools, hot tubs or baths. No ointments, lotions or oils on the incision until your surgeon allows. Leave vishnu, sutures or glue in place. Neurological dysfunction that comes on suddenly can also be a sign of a stroke. Below some common symptoms of a stroke are listed: B - balance difficulty such as sudden onset walking or leaning to one side - NEW E - eye problem such as sudden double vision or trouble seeing on one side - NEW F - Facial weakness or numbness on one side - NEW A - Arm or leg weakness or numbness on one side - NEW S - Slurred speech or difficulty with word finding - NEW T - Time is BRAIN! Call 911 as soon as you recognize these symptoms Diet: Consume a regular diet rich in vegetables and lean protein such as chicken or fish. You should consume in a ratio of approximately 20% fats|40% carbohydrates|40%protein. Vegetables, sweet potatoes, brown rice or quinoa are examples of good carbohydrates. Chips, white bread, cookies and sweets/sugar are examples of bad carbohydrates. Limit your bad carbs, go wild with good carbs. "Life's Simple 7" Guidelines as per [place] [employer] These will help you reclaim your life after surgery and machine operator helper in your recovery, keeping in mind your restrictions. (1) Get Active. Physical activity can help people lose weight, control high blood pressure and cholesterol, feel emotionally better, and sleep better. (2) Control Cholesterol. Avoid a diet high in saturated fat, trans fat, & cholesterol. Limit whole milk & cream, ice cream, butter, egg yolks, processed meats (like sausage and hot dogs), and fatty meats. Choose healthy foods that are low in saturated fat, trans fat and cholesterol which include: Fruits and vegetables, fiber rich grain products (like whole grain pasta and brown rice), lean meat such as chicken, fish, nuts, seeds, and legumes. (3) Eat Better. Eat small portions. Shop at the grocery with a list and do not stray from it. Tips for a healthy diet include: Limit sodium intake to less than 1500mg daily, avoid prepackaged, processed, and fast foods, choose a diet rich in fruits, vegetables, and whole grain, high fiber foods, and limit saturated & cholesterol in your diet. (4) Manage Blood Pressure. If you have high blood pressure, you should have a cuff at home so that you can check your blood pressure regularly. Be sure you have a good cuff. An arm one is generally better than a wrist one. Bring the cuff to a doctor's appointment to validate that the measurements that your cuff are taking are accurate. Take your blood pressure twice daily when you are sitting down and relaxing. Record the numbers in a log and bring this log with you to your doctors' appointments. (5) Lose Weight if your BMI is above 25. A healthy BMI is between 19-25. To calculate Your BMI, you may use a Standard BMI Calculator on the NIH BMI website : <www.nhlbi.nih.gov/guidelines/obesity/BMI/bmicalc.htm>. Weigh oneself daily. If you are overweight, set a goal to lose weight. A pound a week loss if needed is a good target. (6) Reduce Blood Sugar. Limit foods and liquids with "added sugars." (Added sugars include sucrose, fructose, glucose, maltose, dextrose, high fructose corn syrup, corn syrup, concentrated fruit juice and honey). (7) Stop Smoking. If you smoke, quitting smoking is one of the best things that you can do for your health. Smoking increases your risk of heart attack, stroke, and peripheral vascular disease, which is a build-up of plaque in your arteries. Please discard all the cigarettes and lighters in your house. Have a plan for what you will do when you have the urge to smoke. Direct and second- hand smoke shortens your life as well as the lives of your family, friends and others around you. For your health and the health of those around you, please consider quitting! Proper Bending Body Mechanics: Maintain a wide stance with one foot slightly in front of the other. Keep your back straight. Bend utilizing the strength in your hips and knees. Do not bend at the waist. Maintain the lifted object at your waist-level close to your body. Avoid lifting weight that causes immediately pain or pain anywhere in the body afterwards. Smoking/Nicotine If there was ever one thing that you could do to increase your overall health, decrease your risk of cardiovascular problems by about 39% the second you make the choice, it is to STOP SMOKING. Your body's most instant gratification is the second you stop smoking. We have all heard the studies, read the articles but it is true, smoking is extremely bad for your overall health, and moreover it is detrimental to your bone health. Nicotine, IN ANY FORM, kills bone cells, prevents your body from healing fractures, and significantly prolongs healing after surgery. In spine surgery specifically, it increases your risk of not healing your bones to create a fusion and increases your risk of having a revision surgery due to this up to 60%. I know it is hard. I know it feels impossible. But there are ways. Take control of your life. We are here to help you through it. And when you are ready, ask us and we can direct you to help if you desire. Use the START Plan to Quit Smoking (please visit the Helpguide.org website listed below for more information): S = Set a quit date. Choose a date within the next 2 weeks, so you have enough time to prepare without losing your motivation to quit. If you mainly smoke at work, quit on the weekend, so you have a few days to adjust to the change. T = Tell family, friends, and co-workers that you plan to quit. Let your friends and family in on your plan to quit smoking and tell them you need their support and encouragement to stop. Look for a quit billy who wants to stop smoking as well. You can help each other get through the rough times. A = Anticipate and plan for the challenges you'll face while quitting. Most people who begin smoking again do so within the first 3 months. You can help yourself make it through by preparing ahead for common challenges, such as nicotine withdrawal and cigarette cravings. R = Remove cigarettes and other tobacco products from your home, car, and work. Throw away all your cigarettes (no emergency pack!), lighters, ashtrays, and matches. Wash your clothes and freshen up anything that smells like smoke. Shampoo your car, clean your drapes and carpet, and steam your furniture. T = Talk to your doctor about getting help to quit. Your doctor can prescribe medication to help with withdrawal and suggest other alternatives. If you can't see a doctor, you can get many products over the counter at your local pharmacy or grocery store, including the nicotine patch, nicotine lozenges, and nicotine gum. Resources for Quitting Smoking: <https://www.[place].gov/documents/[facility]/Quit_Tobacco_Resources_for_patients_313 480_7.pdf> Supplementation: Take recommended dosages of Vitamin D and Calcium to help fortify your bones and help them to heal. See your health maintenance packet for dosages and recommended levels. DVT/VTE prophylaxis: You will be given compression stockings from the hospital. Wear these daily for the first two weeks after surgery. You may take them off at night. You may be prescribed a medication to help thin your blood. Take this as directed. If you are not prescribed this medication, early and frequent ambulation has been shown to be the best prophylaxis to deep vein thrombosis and sequelae related to this event. Procedures: I&D thoracolumbar spine Patient Condition at Discharge: Serious Plan - Discharge Summary New Discharge Prescriptions: New cefaDROXiL [Duricef] 500 mg PO Q12HR 5 Days #10 cap oxyCODONE HCL/ACETAMINOPHEN [Percocet 10-325 mg] 1 tab PO Q6HR PRN 7 Days #28 tab PRN Reason: Pain Continue methocarbamoL 500 mg PO TID PRN PRN Reason: Muscle Pain Celecoxib 200 mg PO DAILY Pantoprazole [Protonix] 40 mg PO DAILY oxyCODONE HCL/ACETAMINOPHEN [Percocet 10-325 mg] 1 tab PO Q6HR PRN PRN Reason: Pain ondansetron HCL [Zofran] 8 mg PO TID PRN PRN Reason: Nausea Gabapentin 300 mg PO TID Discontinued lisinopriL [Zestril] 10 mg PO DAILY Discharge Medication List Celecoxib 200 mg PO DAILY 09/10/24 [History] Gabapentin 300 mg PO TID 09/10/24 [History] Pantoprazole [Protonix] 40 mg PO DAILY 09/10/24 [History] methocarbamoL 500 mg PO TID PRN 09/10/24 [History] ondansetron HCL [Zofran] 8 mg PO TID PRN 09/26/24 [History] oxyCODONE HCL/ACETAMINOPHEN [Percocet 10-325 mg] 1 tab PO Q6HR PRN 09/26/24 [History] cefaDROXiL [Duricef] 500 mg PO Q12HR 5 Days #10 cap 09/28/24 [Rx] oxyCODONE HCL/ACETAMINOPHEN [Percocet 10-325 mg] 1 tab PO Q6HR PRN 7 Days #28 tab 09/28/24 [Rx] Follow up Appointment(s)/Referral(s): Mitchel Maya MD [Primary Care Provider] - 1-2 days Brandon Alcantara DO [Doctor of Osteopathic Medicine] - 1 Week Jessica Mccoy NPC [Nurse Practitioner] - 10/01/24 Activity/Diet/Wound Care/Special Instructions: Spine Discharge and Recovery Instructions Medications: See medication list All medication refills should be obtained through your primary care doctor or your clinic spine surgeon. Please discuss prescription refills at your follow up appointment. Do not call the hospital for medication refills. Dressing: Leave your dressing in place for a total of 5 days post operatively. Then you may remove your dressing and leave open to air. Keep the area clean and if not able to keep area clean, then cover with sterile gauze and tape. Showering: You may shower 3 days after your procedure allowing soap and water to run over incision. Do not scrub. Do not soak. Blot dry. Follow up: Please confirm a follow up appointment with your surgeon 3 weeks post operatively. Please make an appointment to follow up with your PCP in 1-2 weeks after surgery for evaluation '3 phase, 3-week plan' POST OP WEEKS 1-3 1. Lifting/carrying/pushing/pulling limited to less than 5 pounds. 2. Do not sit for longer than 15 minutes at one time. Get up and walk around. Prolonged sitting is NOT advised. If you lay down, see if you can tolerate laying down on you front (belly side) 3. Walk for periods of 15 minutes = 1 mile but no longer; do it multiple times times each day. 4. Ice your low back after activity. POST OP WEEKS 3-6 1. Lifting limited to less than 20 pounds. 2. Do not sit for longer than 30 minutes at a time. Frequently change positions. Use a sit-to stand workstation or take frequent breaks from sitting if you have returned to work. 3. Walk for 30 minutes each day. If possible, do these three or more times a day POST OP WEEKS 6+ At your 6-week appointment we will give you a physical therapy referral to focus on a core stabilization and strengthening program. You should also work on leg & buttock strengthening, hamstring & quadriceps stretching, and continue a low impact aerobic activity program such as swimming, walking, or riding a stationary bicycle. During the initial 6 weeks after your surgery, you are at the highest risk of re-injuring your spine. You should generally avoid BLT's (bending, lifting and twisting combination motions) and follow the above guidelines to reduce the chance of reinjury. You can anticipate post op appointments in our office at approximately 3 weeks and 6 weeks after your surgery. INCISION CARE: If your incision is not draining you do NOT need to cover it with a dressing. Keep your incision clean, dry and intact. In most cases, we apply skin glue, vishnu or sutures to the incision at the time of surgery. This will be like a crust or have the appearance of a scab and will fall off in time on its own. The stitches or vishnu need to be removed at 3 weeks post op appointment. You may begin to shower 3 days after surgery (this allows the glue to santana well). However, please avoid scrubbing the incision site or peeling off any of the skin glue. This will ensure optimal healing of your incision. Also, during this time avoid soaking the incision area in water - this includes swimming pools, hot tubs or baths. No ointments, lotions or oils on the incision until your surgeon allows. Leave vishnu, sutures or glue in place. Neurological dysfunction that comes on suddenly can also be a sign of a stroke. Below some common symptoms of a stroke are listed: B - balance difficulty such as sudden onset walking or leaning to one side - NEW E - eye problem such as sudden double vision or trouble seeing on one side - NEW F - Facial weakness or numbness on one side - NEW A - Arm or leg weakness or numbness on one side - NEW S - Slurred speech or difficulty with word finding - NEW T - Time is BRAIN! Call 911 as soon as you recognize these symptoms Diet: Consume a regular diet rich in vegetables and lean protein such as chicken or fish. You should consume in a ratio of approximately 20% fats|40% carbohydrates|40%protein. Vegetables, sweet potatoes, brown rice or quinoa are examples of good carbohydrates. Chips, white bread, cookies and sweets/sugar are examples of bad carbohydrates. Limit your bad carbs, go wild with good carbs. "Life's Simple 7" Guidelines as per [place] [employer] These will help you reclaim your life after surgery and machine operator helper in your recovery, keeping in mind your restrictions. (1) Get Active. Physical activity can help people lose weight, control high blood pressure and cholesterol, feel emotionally better, and sleep better. (2) Control Cholesterol. Avoid a diet high in saturated fat, trans fat, & cholesterol. Limit whole milk & cream, ice cream, butter, egg yolks, processed meats (like sausage and hot dogs), and fatty meats. Choose healthy foods that are low in saturated fat, trans fat and cholesterol which include: Fruits and vegetables, fiber rich grain products (like whole grain pasta and brown rice), lean meat such as chicken, fish, nuts, seeds, and legumes. (3) Eat Better. Eat small portions. Shop at the grocery with a list and do not stray from it. Tips for a healthy diet include: Limit sodium intake to less than 1500mg daily, avoid prepackaged, processed, and fast foods, choose a diet rich in fruits, vegetables, and whole grain, high fiber foods, and limit saturated & cholesterol in your diet. (4) Manage Blood Pressure. If you have high blood pressure, you should have a cuff at home so that you can check your blood pressure regularly. Be sure you have a good cuff. An arm one is generally better than a wrist one. Bring the cuff to a doctor's appointment to validate that the measurements that your cuff are taking are accurate. Take your blood pressure twice daily when you are sitting down and relaxing. Record the numbers in a log and bring this log with you to your doctors' appointments. (5) Lose Weight if your BMI is above 25. A healthy BMI is between 19-25. To calculate Your BMI, you may use a Standard BMI Calculator on the NIH BMI website: <www.nhlbi.nih.gov/guidelines/obesity/BMI/bmicalc.htm>. Weigh oneself daily. If you are overweight, set a goal to lose weight. A pound a week loss if needed is a good target. (6) Reduce Blood Sugar. Limit foods and liquids with "added sugars." (Added sugars include sucrose, fructose, glucose, maltose, dextrose, high fructose corn syrup, corn syrup, concentrated fruit juice and honey). (7) Stop Smoking. If you smoke, quitting smoking is one of the best things that you can do for your health. Smoking increases your risk of heart attack, stroke, and peripheral vascular disease, which is a build-up of plaque in your arteries. Please discard all the cigarettes and lighters in your house. Have a plan for what you will do when you have the urge to smoke. Direct and second- hand smoke shortens your life as well as the lives of your family, friends and others around you. For your health and the health of those around you, please consider quitting! Proper Bending Body Mechanics: Maintain a wide stance with one foot slightly in front of the other. Keep your back straight. Bend utilizing the strength in your hips and knees. Do not bend at the waist. Maintain the lifted object at your waist-level close to your body. Avoid lifting weight that causes immediately pain or pain anywhere in the body afterwards. Smoking/Nicotine If there was ever one thing that you could do to increase your overall health, decrease your risk of cardiovascular problems by about 39% the second you make the choice, it is to STOP SMOKING. Your body's most instant gratification is the second you stop smoking. We have all heard the studies, read the articles but it is true, smoking is extremely bad for your overall health, and moreover it is detrimental to your bone health. Nicotine, IN ANY FORM, kills bone cells, prevents your body from healing fractures, and significantly prolongs healing after surgery. In spine surgery specifically, it increases your risk of not healing your bones to create a fusion and increases your risk of having a revision surgery due to this up to 60%. I know it is hard. I know it feels impossible. But there are ways. Take control of your life. We are here to help you through it. And when you are ready, ask us and we can direct you to help if you desire. Use the START Plan to Quit Smoking (please visit the Helpguide.org website listed below for more information): S = Set a quit date. Choose a date within the next 2 weeks, so you have enough time to prepare without losing your motivation to quit. If you mainly smoke at work, quit on the weekend, so you have a few days to adjust to the change. T = Tell family, friends, and co-workers that you plan to quit. Let your friends and family in on your plan to quit smoking and tell them you need their support and encouragement to stop. Look for a quit billy who wants to stop smoking as well. You can help each other get through the rough times. A = Anticipate and plan for the challenges you'll face while quitting. Most people who begin smoking again do so within the first 3 months. You can help yourself make it through by preparing ahead for common challenges, such as nicotine withdrawal and cigarette cravings. R = Remove cigarettes and other tobacco products from your home, car, and work. Throw away all your cigarettes (no emergency pack!), lighters, ashtrays, and matches. Wash your clothes and freshen up anything that smells like smoke. Shampoo your car, clean your drapes and carpet, and steam your furniture. T = Talk to your doctor about getting help to quit. Your doctor can prescribe medication to help with withdrawal and suggest other alternatives. If you can't see a doctor, you can get many products over the counter at your local pharmacy or grocery store, including the nicotine patch, nicotine lozenges, and nicotine gum. Resources for Quitting Smoking: <https://www.[facility].gov/documents/[facility]/Quit_Tobacco_Resources_for_patients_[email or web address].pdf> Supplementation: Take recommended dosages of Vitamin D and Calcium to help fortify your bones and help them to heal. See your health maintenance packet for dosages and recommended levels. DVT/VTE prophylaxis: You will be given compression stockings from the hospital. Wear these daily for the first two weeks after surgery. You may take them off at night. You may be prescribed a medication to help thin your blood. Take this as directed. If you are not prescribed this medication, early and frequent ambulation has been shown to be the best prophylaxis to deep vein thrombosis and sequelae related to this event. Discharge Disposition: HOME SELF-CARE
== END 2024-09-28 15:13 | disposition home or self-care (01) | DRG 908 ==
LOC: EC 16:51 → 4SSUR 18:23 → OBSVTOIN 18:24
PROVIDERS: ADMIT Orthopaedic Surgery; ATTEND Orthopaedic Surgery
PROC: HZ2ZZZZ Detoxification Services for Substance Abuse Treatment (ICD-10-PCS; 2024-09-26)
PROC: 0R9 Upper Joints, Drainage (ICD-10-PCS; principal; 2024-09-26 18:30)
PROC: 0PD Upper Bones, Extraction (ICD-10-PCS; principal; 2024-09-26 18:30)
DX: G97.63 Postprocedural seroma of a nervous system organ or structure following a nervous system procedure (principal); D62 Acute posthemorrhagic anemia; E87.1 Hypo-osmolality and hyponatremia; G95.89 Other specified diseases of spinal cord; I10 Essential (primary) hypertension; K21.9 Gastro-esophageal reflux disease without esophagitis; G62.9 Polyneuropathy, unspecified; D75.839 Thrombocytosis, unspecified; Z87.891 Personal history of nicotine dependence; Z79.899 Other long term (current) drug therapy; Z79.1 Long term (current) use of non-steroidal anti-inflammatories (NSAID)
CPT/HCPCS: 36415; 80048; 80053; 82977; 83735; 84100; 84450; 84460; 85025; 85027; 85610; 85730; 86850; 86900; 86901; 93005; 99285

== ENCOUNTER → 2024-09-26 | Outpatient (CLI) | payer BC ==
--- NOTE | 2024-09-26 16:38 | CT ---
EXAMINATION TYPE: CT thor lumbar spine wo con DATE OF EXAM: 09/26/2024 4:11 PM COMPARISON: Previous CT study dated 09/11/2024. 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 Coronal and sagittal reformats were performed. 3-D reformats of the bones were created on a separate workstation and submitted for review. CT Contrast: CT DLP: 1015.9 mGycm, Automated exposure control for dose reduction was used. FINDINGS: Thoracic: Redemonstration posterior decompression and fusion at T11-T12 with T11-T12 intervertebral disc spacer device noted. No significant periprosthetic lucency. Soft tissue gas and edema again noted in this r egion, likely postsurgical related. Severe intervertebral disc space loss at T7-T10. At least mild sp inal canal stenosis at these levels with suggestion of posterior disc ossify complex. Thoracic spine findings an osteotomy change from recent study 09/11/2024. Partially visualized lungs demonstrate pat wiliam ground glass attenuation opacities. Lumbar: Posterior lumbosacral spinal fusion hardware visualized spanning L4-S1 with L4-5 and L5-S1 vertebral disc spacer device is noted. Grade 1 anterolisthesis of L4 and L5. Laminectomy defects at L4 and L5. No high-grade spinal canal or neural foraminal stenosis in the lumbosacral spine. No acute fracture o r traumatic subluxation. Hardware appears intact without acute complication. Other: None IMPRESSION: 1. Overall, no significant interval changes from recent study dated 09/11/2024. Postsurgical changes again noted at T11-T12 suggesting decompression laminectomy. Hardware appears intact and in stable a lignment. 2. Nonspecific patchy groundglass opacities in the partially visualized lungs suggesting factious or inflammatory etiology. [facility], , 09/26/2024 4:36 PM
== END | disposition home or self-care (01) ==
LOC: RADCTMAIN 15:23
PROVIDERS: ATTEND Orthopaedic Surgery
DX: M51.05 Intervertebral disc disorders with myelopathy, thoracolumbar region (principal); R91.8 Other nonspecific abnormal finding of lung field
CPT/HCPCS: 72128; 72131